=== PATIENT | female | born 1975 | race Caucasian/White ===

== ENCOUNTER → 2018-11-26 | Outpatient (CLI) | payer BC ==
--- NOTE | 2018-11-26 14:54 | MR ---
EXAMINATION TYPE: MR brain wo con DATE OF EXAM: 11/26/2018 COMPARISON: NONE HISTORY: elevated prolactin TECHNIQUE: Multiplanar, multisequence images of the brain and brainstem is performed without intravenous contras t. FINDINGS: Diffusion weighted images demonstrate no evidence of a recent infarct or other diffusion ab normality. There is no extra-axial fluid collection. Punctate foci of nonspecific white matter jaimes e are seen within the right frontal subcortical white matter such as on FLAIR axial fat-sat image 22 and 16. Left frontal focus is also seen on image 18. Additional centrum semiovale foci are seen on im age 25 and 26 bilaterally. The ventricular system and cisternal spaces are normal in size and appeara nce. The brain volume is age appropriate. There is a heterogenous pituitary gland mass measuring 1.3 x 1.5 x 1.7 cm that is central and right l ateral abutting the right cavernous sinus and right internal carotid artery. This does not appear to encase the right internal carotid artery. There is no current impression upon the optic chiasm. T2/FL AIR hyperintense internal foci suggest cystic degeneration. Major intracranial flow voids are maintai jamie, particularly the right carotid artery adjacent to this macroadenoma. The craniocervical junction appears within normal limits. The dural venous sinuses appear patent. The visualized sinuses display scant mucosal thickening in the right maxillary sinus. Remaining paranasa l sinuses and mastoid air cells are well aerated. Orbits are symmetric. IMPRESSION: 1. Heterogenous pituitary macroadenoma for which full evaluation with MRI pituitary mass protocol wit h contrast is recommended. 2. Few foci of nonspecific white matter change that most likely are sequela of chronic microangiopath y or migraines given their distribution.
== END | disposition home or self-care (01) ==
LOC: RADMRIMAIN 11:25
PROVIDERS: ATTEND Family Medicine
DX: D35.2 Benign neoplasm of pituitary gland (principal); R90.82 White matter disease, unspecified
CPT/HCPCS: 70551

== ENCOUNTER → 2019-01-28 | Outpatient (CLI) | payer BC ==
--- NOTE | 2019-01-29 19:45 | MR ---
EXAMINATION TYPE: MR pituitary wo/w con DATE OF EXAM: 01/28/2019 COMPARISON: MRI brain November 26, 2018. HISTORY: Pituitary tumor TECHNIQUE: Multiplanar, multisequence images of the brain and brainstem is performed without and with IV contras t, utilizing 7.5 mL intravenous Gadavist . Pituitary gland protocol. FINDINGS: Heterogeneous enhancing sellar mass is redemonstrated appears to be contiguous with the cli vus. Pituitary stalk is slightly deviated to the left of midline coronal image 12. Suprasellar cister n is maintained. Mass is believed to invade the sphenoid sinuses. Mass is just under to the right of midline on coronal images measuring 1.8 cm transversely by roughly 2.6 cm craniocaudal dimension by 3 .5 cm AP diameter. Normal pituitary gland is not seen. Optic chiasm is not effaced. Craniocervical ju nction is maintained. No gross hydrocephalus is seen. IMPRESSION: There is clival based mass invading sellar region differential includes neoplasm such as chordoma, advise correlation with CT. Advise neurosurgical referral.
== END | disposition home or self-care (01) ==
LOC: RADMRIMAIN 12:08
PROVIDERS: ATTEND Family Medicine
DX: D35.2 Benign neoplasm of pituitary gland (principal)
CPT/HCPCS: 70553; A9585

== ENCOUNTER → 2019-07-14 | Outpatient (CLI) | payer BC ==
[2019-07-14 11:52] LABS: T4, Free (Free Thyroxine) 1.1 ng/dL (0.80-1.80)
[2019-07-14 12:11] LABS: Prolactin 146.4 ng/mL (2.8-29.2)
[2019-07-18 13:08] LABS: Growth Hormone, Human 1.6 ng/mL (<10)
== END | disposition home or self-care (01) ==
LOC: LABWHC1 07:26
PROVIDERS: ATTEND Neurological Surgery
DX: D35.2 Benign neoplasm of pituitary gland (principal)
CPT/HCPCS: 36415; 82024; 82533; 83003; 84146; 84305; 84439; 84443

== ENCOUNTER → 2020-08-23 | Outpatient (CLI) | payer BC ==
--- NOTE | 2020-08-26 04:58 | CT ---
EXAMINATION TYPE: CT abdomen w con DATE OF EXAM: 08/23/2020 COMPARISON: NONE HISTORY: 45-year-old female Epigastric pain, nausea and vomiting x1 month. TECHNIQUE: Contiguous axial scanning of the abdomen following administration of 100 ml Isovue 300 IV contrast. Delayed images through the kidneys and coronal/sagittal reconstructions performed. CT DLP: 252.8 mGycm Automated exposure control for dose reduction was used. FINDINGS: Heart normal size without pericardial effusion. Lung bases clear without pleural effusion. Contrasted along with prominent retained ingested debris within the stomach. 9 mm hypervascular focus within the caudate lobe of the liver follows the blood pool on the delayed k idney images. This could represent a flash filling hemangioma. A couple additional flash filling sue ngiomas versus vascular shunting in the posterior right hepatic dome. Portal venous system is patent. No biliary ductal dilatation. Gallbladder, adrenal glands, kidneys, spleen with tiny anterior hilar splenule, and pancreas appear w ithin normal limits. No dilated small bowel, free fluid, free air. No mesenteric or retroperitoneal lymphadenopathy seen i n the upper mid abdomen. The pelvis not imaged. Moderate stool burden. No pericolonic inflammatory change. The appendix is not included in the field- of-view. Bones: Sclerotic focus measuring 1.3 cm posterior right iliac bone likely bone island. IMPRESSION: 1. A FEW HYPERVASCULAR LESIONS WITHIN THE LIVER MEASURING UP TO 9 MM FOLLOW THE BLOOD POOL ON DELAYED KIDNEY IMAGES SUGGESTING A BENIGN ETIOLOGY SUCH FLASH FILLING HEMANGIOMAS OR AREAS OF VASCULAR SH UNTING. 2. CONTRAST AND PROMINENT RETAINED INGESTED DEBRIS WITHIN THE STOMACH. 3. MODERATE STOOL BURDEN. 4. NO ACUTE INFLAMMATORY PROCESS IDENTIFIED IN THE UPPER OR MIDABDOMEN TO EXPLAIN THE PATIENT'S SYMPT OMS. THE PELVIS IS NOT IMAGED.
== END | disposition home or self-care (01) ==
LOC: RADCTMAIN 18:17
PROVIDERS: ATTEND Family Medicine
DX: K76.89 Other specified diseases of liver (principal); R19.5 Other fecal abnormalities; R93.5 Abnormal findings on diagnostic imaging of other abdominal regions, including retroperitoneum
CPT/HCPCS: 74160; Q9967

== ENCOUNTER 2021-03-30 05:21 | Inpatient (IN) | payer BC ==
[2021-03-30] MEDS ORDERED: SODIUM CHLORIDE 0.9% 1,000 ML IV STA (05:51)
--- NOTE | 2021-03-30 05:58 | ED ---
Abdominal Pain HPI <Edgar Victor - Last Filed: 03/30/21 09:44> - General Source: patient, RN notes reviewed, old records reviewed Mode of arrival: ambulatory Limitations: no limitations - History of Present Illness MD Complaint: abdominal pain, other (Right lower quadrant pain) -: days(s) Location: RLQ, suprapubic Radiation: RLQ, suprapubic Migration to: RLQ Severity: mild Severity scale (1-10): 3 Quality: aching Consistency: constant Improves With: nothing Worsens With: nothing Associated Symptoms: nausea Treatments Prior to Arrival: other (none) <Edgar Martinez - Last Filed: 03/30/21 21:22> - General Chief Complaint: Abdominal Pain Stated Complaint: abd pain Time Seen by Provider: 03/30/21 05:33 - History of Present Illness Initial Comments: This is a 45-year-old female to the ER for evaluation patient resents with nausea vomiting abdominal pain. Right lower quadrant abdominal pain epigastric abdominal pain. Patient also has anorexia and weakness. No fevers. Patient has not been feeling well for a few days now. (Edgar Martinez) - Related Data Home Medications Medication Instructions Recorded Confirmed Cabergoline 0.5 mg PO SUWE 03/30/21 03/30/21 Omeprazole 40 mg PO DAILY 03/30/21 03/30/21 Allergies Allergy/AdvReac Type Severity Reaction Status Date / Time No Known Allergies Allergy Verified 03/30/21 11:47 Review of Systems ROS Other: All systems not noted in ROS Statement are negative. <Edgar Victor - Last Filed: 03/30/21 09:44> ROS Other: All systems not noted in ROS Statement are negative. <Edgar Martinez - Last Filed: 03/30/21 21:22> ROS Statement: Those systems with pertinent positive or pertinent negative responses have been documented in the HPI. Past Medical History Past Medical History: No Reported History History of Any Multi-Drug Resistant Organisms: None Reported Past Surgical History: No Surgical Hx Reported Past Psychological History: No Psychological Hx Reported Smoking Status: Never smoker Past Alcohol Use History: Occasional Past Drug Use History: None Reported <Edgar Martinez - Last Filed: 03/30/21 21:22> General Exam Limitations: no limitations General appearance: alert, in no apparent distress Head exam: Present: atraumatic, normocephalic, normal inspection Eye exam: Present: normal appearance, PERRL, EOMI. Absent: scleral icterus, conjunctival injection, periorbital swelling ENT exam: Present: normal exam, mucous membranes moist Neck exam: Present: normal inspection. Absent: tenderness, meningismus, lymphadenopathy Respiratory exam: Present: normal lung sounds bilaterally. Absent: respiratory distress, wheezes, rales, rhonchi, stridor Cardiovascular Exam: Present: regular rate, normal rhythm, normal heart sounds. Absent: systolic murmur, diastolic murmur, rubs, gallop, clicks GI/Abdominal exam: Present: soft, normal bowel sounds. Absent: distended, tenderness, guarding, rebound, rigid Extremities exam: Present: normal inspection, full ROM, normal capillary refill. Absent: tenderness, pedal edema, joint swelling, calf tenderness Back exam: Present: normal inspection Neurological exam: Present: alert, oriented X3, CN II-XII intact Psychiatric exam: Present: normal affect, normal mood Skin exam: Present: warm, dry, intact, normal color. Absent: rash <Edgar Martinez - Last Filed: 03/30/21 21:22> Course <Edgar Martinez - Last Filed: 03/30/21 21:22> Vital Signs 03/30/21 03/30/21 03/30/21 05:33 08:00 10:00 Temperature 97.7 F 98.3 F Pulse Rate 94 62 67 Respiratory 16 18 18 Rate Blood Pressure 125/94 110/82 111/83 O2 Sat by Pulse 99 100 99 Oximetry - Reevaluation(s) Reevaluation #1: 03/30/21 05:58 Medical record is reviewed (Edgar Martinez) Reevaluation #2: And remained improved here in the ER Patient informed results questions answered (Edgar Martinez) Medical Decision Making - Lab Data Result diagrams: 03/30/21 06:02 03/30/21 06:02 <Edgar Victor - Last Filed: 03/30/21 09:44> - Lab Data Result diagrams: 03/30/21 06:02 03/30/21 06:02 - Radiology Data Radiology results: report reviewed (CT head and pelvis is negative, ultrasound does show gallstones), image reviewed <Edgar Martinez - Last Filed: 03/30/21 21:22> - Medical Decision Making 45 female the admitted for hepatitis, cholelithiasis, surgical GI consult (Edgar Martinez) - Lab Data Lab Results 03/30/21 03/30/21 03/30/21 Range/Units 06:02 06:02 06:02 WBC 6.5 (3.8-10.6) k/uL RBC 4.20 (3.80-5.40) m/uL Hgb 13.0 (11.4-16.0) gm/dL Hct 37.6 (34.0-46.0) % MCV 89.6 (80.0-100.0) fL MCH 31.0 (25.0-35.0) pg MCHC 34.6 (31.0-37.0) g/dL RDW 12.8 (11.5-15.5) % Plt Count 261 (150-450) k/uL MPV 6.9 Neutrophils % 66 % Lymphocytes % 23 % Monocytes % 7 % Eosinophils % 1 % Basophils % 1 % Neutrophils # 4.3 (1.3-7.7) k/uL Lymphocytes # 1.5 (1.0-4.8) k/uL Monocytes # 0.5 (0-1.0) k/uL Eosinophils # 0.1 (0-0.7) k/uL Basophils # 0.1 (0-0.2) k/uL PT (9.0-12.0) sec INR (<1.2) APTT (22.0-30.0) sec Sodium 140 (137-145) mmol/L Potassium 3.8 (3.5-5.1) mmol/L Chloride 103 (98-107) mmol/L Carbon Dioxide 28 (22-30) mmol/L Anion Gap 9 mmol/L BUN 7 (7-17) mg/dL Creatinine 0.61 (0.52-1.04) mg/dL Est GFR (CKD-EPI)AfAm >90 (>60 ml/min/1.73 sqM) Est GFR (CKD-EPI)NonAf >90 (>60 ml/min/1.73 sqM) Glucose 92 (74-99) mg/dL Plasma Lactic Acid Wes (0.7-2.0) mmol/L Calcium 9.8 (8.4-10.2) mg/dL Total Bilirubin 4.9 H (0.2-1.3) mg/dL Conjugated Bilirubin (0.0-0.3) mg/dL Unconjugated Bilirubin (0.0-1.1) mg/dL Delta Bilirubin (0.0-0.2) mg/dL GGT (12-43) U/L AST 394 H (14-36) U/L ALT 300 H (4-34) U/L Alkaline Phosphatase 128 H (38-126) U/L Total Protein 7.1 (6.3-8.2) g/dL Albumin 4.4 (3.5-5.0) g/dL Amylase 58 (30-110) U/L Lipase 223 (23-300) U/L Urine Color Yellow Urine Appearance Clear (Clear) Urine pH 6.5 (5.0-8.0) Ur Specific [place] 1.005 (1.001-1.035) Urine Protein Negative (Negative) Urine Glucose (UA) Negative (Negative) Urine Ketones Trace H (Negative) Urine Blood Negative (Negative) Urine Nitrite Negative (Negative) Urine Bilirubin 1+ H (Negative) Urine Urobilinogen <2.0 (<2.0) mg/dL Ur Leukocyte Esterase Negative (Negative) Acetaminophen ug/mL Hepatitis A IgM Ab (Non-Reactive) Hep Bs Antigen (Non-Reactive) Hep B Core IgM Ab (Non-Reactive) Hep C IgG Ab (Non-Reactive) 03/30/21 03/30/21 03/30/21 Range/Units 06:02 08:23 08:23 WBC (3.8-10.6) k/uL RBC (3.80-5.40) m/uL Hgb (11.4-16.0) gm/dL Hct (34.0-46.0) % MCV (80.0-100.0) fL MCH (25.0-35.0) pg MCHC (31.0-37.0) g/dL RDW (11.5-15.5) % Plt Count (150-450) k/uL MPV Neutrophils % % Lymphocytes % % Monocytes % % Eosinophils % % Basophils % % Neutrophils # (1.3-7.7) k/uL Lymphocytes # (1.0-4.8) k/uL Monocytes # (0-1.0) k/uL Eosinophils # (0-0.7) k/uL Basophils # (0-0.2) k/uL PT (9.0-12.0) sec INR (<1.2) APTT (22.0-30.0) sec Sodium (137-145) mmol/L Potassium (3.5-5.1) mmol/L Chloride (98-107) mmol/L Carbon Dioxide (22-30) mmol/L Anion Gap mmol/L BUN (7-17) mg/dL Creatinine (0.52-1.04) mg/dL Est GFR (CKD-EPI)AfAm (>60 ml/min/1.73 sqM) Est GFR (CKD-EPI)NonAf (>60 ml/min/1.73 sqM) Glucose (74-99) mg/dL Plasma Lactic Acid Wes 0.6 L (0.7-2.0) mmol/L Calcium (8.4-10.2) mg/dL Total Bilirubin 4.6 H (0.2-1.3) mg/dL Conjugated Bilirubin 2.0 H (0.0-0.3) mg/dL Unconjugated Bilirubin 1.9 H (0.0-1.1) mg/dL Delta Bilirubin 0.7 H (0.0-0.2) mg/dL GGT 99 H (12-43) U/L AST (14-36) U/L ALT (4-34) U/L Alkaline Phosphatase (38-126) U/L Total Protein (6.3-8.2) g/dL Albumin (3.5-5.0) g/dL Amylase (30-110) U/L Lipase (23-300) U/L Urine Color Urine Appearance (Clear) Urine pH (5.0-8.0) Ur Specific [place] (1.001-1.035) Urine Protein (Negative) Urine Glucose (UA) (Negative) Urine Ketones (Negative) Urine Blood (Negative) Urine Nitrite (Negative) Urine Bilirubin (Negative) Urine Urobilinogen (<2.0) mg/dL Ur Leukocyte Esterase (Negative) Acetaminophen <10.0 ug/mL Hepatitis A IgM Ab Non-Reactive (Non-Reactive) Hep Bs Antigen Non-Reactive (Non-Reactive) Hep B Core IgM Ab Non-Reactive (Non-Reactive) Hep C IgG Ab Non-Reactive (Non-Reactive) 03/30/21 Range/Units 08:23 WBC (3.8-10.6) k/uL RBC (3.80-5.40) m/uL Hgb (11.4-16.0) gm/dL Hct (34.0-46.0) % MCV (80.0-100.0) fL MCH (25.0-35.0) pg MCHC (31.0-37.0) g/dL RDW (11.5-15.5) % Plt Count (150-450) k/uL MPV Neutrophils % % Lymphocytes % % Monocytes % % Eosinophils % % Basophils % % Neutrophils # (1.3-7.7) k/uL Lymphocytes # (1.0-4.8) k/uL Monocytes # (0-1.0) k/uL Eosinophils # (0-0.7) k/uL Basophils # (0-0.2) k/uL PT 10.8 (9.0-12.0) sec INR 1.0 (<1.2) APTT 22.4 (22.0-30.0) sec Sodium (137-145) mmol/L Potassium (3.5-5.1) mmol/L Chloride (98-107) mmol/L Carbon Dioxide (22-30) mmol/L Anion Gap mmol/L BUN (7-17) mg/dL Creatinine (0.52-1.04) mg/dL Est GFR (CKD-EPI)AfAm (>60 ml/min/1.73 sqM) Est GFR (CKD-EPI)NonAf (>60 ml/min/1.73 sqM) Glucose (74-99) mg/dL Plasma Lactic Acid Wes (0.7-2.0) mmol/L Calcium (8.4-10.2) mg/dL Total Bilirubin (0.2-1.3) mg/dL Conjugated Bilirubin (0.0-0.3) mg/dL Unconjugated Bilirubin (0.0-1.1) mg/dL Delta Bilirubin (0.0-0.2) mg/dL GGT (12-43) U/L AST (14-36) U/L ALT (4-34) U/L Alkaline Phosphatase (38-126) U/L Total Protein (6.3-8.2) g/dL Albumin (3.5-5.0) g/dL Amylase (30-110) U/L Lipase (23-300) U/L Urine Color Urine Appearance (Clear) Urine pH (5.0-8.0) Ur Specific [place] (1.001-1.035) Urine Protein (Negative) Urine Glucose (UA) (Negative) Urine Ketones (Negative) Urine Blood (Negative) Urine Nitrite (Negative) Urine Bilirubin (Negative) Urine Urobilinogen (<2.0) mg/dL Ur Leukocyte Esterase (Negative) Acetaminophen ug/mL Hepatitis A IgM Ab (Non-Reactive) Hep Bs Antigen (Non-Reactive) Hep B Core IgM Ab (Non-Reactive) Hep C IgG Ab (Non-Reactive) Disposition Time of Disposition: 09:45 <Edgar Victor - Last Filed: 03/30/21 09:44> Is patient prescribed a controlled substance at d/c from ED?: No <Edgar Martinez - Last Filed: 03/30/21 21:22> Clinical Impression: Abdominal pain, Cholelithiasis, Hepatitis Disposition: ADMITTED IP TO THIS [facility] Condition: Good
[2021-03-30 06:22] LABS: Basophils # (A) 0.1 k/uL (0-0.2); Basophils % (A) 1 %; Eosinophils # (A) 0.1 k/uL (0-0.7); Eosinophils % (A) 1 %; HCT 37.6 % (34.0-46.0); Lymphocytes # (A) 1.5 k/uL (1.0-4.8); Lymphocytes % (A) 23 %; MCHC 34.6 g/dL (31.0-37.0); MCV 89.6 fL (80.0-100.0); Mean Platelet Volume 6.9; Monocytes # (A) 0.5 k/uL (0-1.0); Monocytes % (A) 7 %; Neutrophils # (A) 4.3 k/uL (1.3-7.7); Neutrophils % (A) 66 %; Platelet Count 261 k/uL (150-450); RDW 12.8 % (11.5-15.5); WBC 6.5 k/uL (3.8-10.6)
[2021-03-30 06:32] LABS: ALT 300 U/L (4-34); AST 394 U/L (14-36); African American GFR (CKD) >90 (>60 ml/min/1.73 sqM); Albumin 4.4 g/dL (3.5-5.0); Alkaline Phosphatase 128 U/L (38-126); Amylase 58 U/L (30-110); Anion Gap 9 mmol/L; Blood Urea Nitrogen 7 mg/dL (7-17); Calcium 9.8 mg/dL (8.4-10.2); Carbon Dioxide 28 mmol/L (22-30); Chloride 103 mmol/L (98-107); Glucose 92 mg/dL (74-99); Lipase 223 U/L (23-300); Non-African American GFR(CKD) >90 (>60 ml/min/1.73 sqM); Potassium 3.8 mmol/L (3.5-5.1); Sodium 140 mmol/L (137-145); Total Bilirubin 4.9 mg/dL (0.2-1.3); Total Protein 7.1 g/dL (6.3-8.2)
[2021-03-30 06:33] LABS: Appearance,Urine Clear (Clear); Bilirubin,Urine 1+ (Negative); Blood,Urine Negative (Negative); Color,Urine Yellow; Glucose,Urine (UA) Negative (Negative); Ketones,Urine Trace (Negative); Leukocyte Esterase,Urine Negative (Negative); Nitrite,Urine Negative (Negative); PH, Urine 6.5 (5.0-8.0); Protein,Urine Negative (Negative); Specific Gravity,Urine 1.005 (1.001-1.035); Urobilinogen,Urine <2.0 mg/dL (<2.0)
--- NOTE | 2021-03-30 07:10 | CT ---
EXAM: CT Abdomen and Pelvis With Intravenous Contrast CLINICAL HISTORY: ITS.REASON CT Reason: abdominal pain TECHNIQUE: Axial computed tomography images of the abdomen and pelvis with intravenous contrast. CTDI is 11.27 mGy and DLP is 472.8 mGy-cm. This CT exam was performed using one or more of the following dose reduction techniques: automated exposure control, adjustment of the mA and/or kV according to patient size, and/or use of iterative reconstruction technique. COMPARISON: 08/23/2020 FINDINGS: Lung bases: Unremarkable. No mass. No consolidation. ABDOMEN: Liver: 9 mm hemangioma in the left hepatic lobe. 2.0 cm inferior left hepatic lobe hypervascular lesion, unchanged from prior study. Gallbladder and bile ducts: Unremarkable. No calcified stones. No ductal dilation. Pancreas: Unremarkable. No mass. No ductal dilation. Spleen: Unremarkable. No splenomegaly. Adrenals: Unremarkable. No mass. Kidneys and ureters: Unremarkable. No solid mass. No hydronephrosis. Stomach and bowel: Unremarkable. No obstruction. No mucosal thickening. PELVIS: Appendix: No findings to suggest acute appendicitis. Bladder: Unremarkable. No mass. Reproductive: Unremarkable as visualized. ABDOMEN and PELVIS: Intraperitoneal space: Unremarkable. No free air. No significant fluid collection. Bones/joints: No acute fracture. No dislocation. Soft tissues: Unremarkable. Vasculature: Unremarkable. No abdominal aortic aneurysm. Lymph nodes: Unremarkable. No enlarged lymph nodes. IMPRESSION: No acute intra-abdominal process.
--- NOTE | 2021-03-30 08:39 | US ---
EXAMINATION TYPE: US gallbladder DATE OF EXAM: 03/30/2021 COMPARISON: NONE CLINICAL HISTORY: pain. Pain EXAM MEASUREMENTS: Liver Length: 14.9 cm Gallbladder Wall: 0.3-0.4 cm CBD: 0,3 cm Right Kidney: 9.8 x 3.8 x 4.8 cm Pancreas: wnl Liver: wnl Gallbladder: Multiple gallstones visualized. Evidence for sonographic Maloney's sign: No CBD: wnl Right Kidney: wnl IMPRESSION: Cholelithiasis, correlate for possible cholecystitis, HIDA scan may be of benefit
[2021-03-30 08:49] LABS: Partial Thromboplastin Time 22.4 sec (22.0-30.0); Prothrombin Time 10.8 sec (9.0-12.0)
[2021-03-30 08:53] LABS: Acetaminophen <10.0 ug/mL; Bilirubin, Delta 0.7 mg/dL (0.0-0.2); Bilirubin,Unconjugated 1.9 mg/dL (0.0-1.1); GGT 99 U/L (12-43); Total Bilirubin 4.6 mg/dL (0.2-1.3)
[2021-03-30] MEDS ORDERED: NON FORMULARY DRUG (Cabergoline [Cabergoline] 0.5 MG Tablet) PO SCH (09:00)
[2021-03-30] MEDS ORDERED: SODIUM CHLORIDE 0.9% 1,000 ML IV ONE (09:45)
[2021-03-30] MEDS ORDERED: ONDANSETRON 4 MG/2 ML VIAL IVP PRN (12:11)
[2021-03-30] MEDS ORDERED: HYDROcodone/APAP 7.5-325MG 1 EACH TAB PO PRN (12:11)
[2021-03-30] MEDS ORDERED: MORPHINE SULFATE 4 MG/ML SYRINGE IVP PRN (12:11)
[2021-03-30] MEDS: PANTOPRAZOLE 40 MG/10 ML VIAL IVP SCH (12:23)
[2021-03-30 12:55] LABS: Hepatitis A Antibody IgM Non-Reactive (Non-Reactive); Hepatitis B Core IgM Non-Reactive (Non-Reactive); Hepatitis B Surface Antigen Non-Reactive (Non-Reactive); Hepatitis C IgG Antibody Non-Reactive (Non-Reactive)
--- NOTE | 2021-03-30 13:35 | P.HPIM ---
History of Present Illness 40-year-old female with known history of gallstones came in with complaints of right upper quadrant abdominal pain started after fatty food patient has on and off for pain sharp in nature patient does not have any fever chills doesn't have any leukocytosis. Patient is found to have gallstones on the ultrasound. Patient also has elevated liver enzymes including elevated alkaline phosphatase,, glutamyl transpeptidase, both direct and indirect of bilirubin. Ultrasound did not show any choledocholithiasis or dilated common bile duct. Gastroenterology and general surgery were consulted. Patient had associated nausea REVIEW OF SYSTEMS: CONSTITUTIONAL: No fever, no malaise, no fatigue. HEENT: No recent visual problems or hearing problems. Denied any sore throat. CARDIOVASCULAR: No chest pain, orthopnea, PND, no palpitations, no syncope. PULMONARY: No shortness of breath, no cough, no hemoptysis. GASTROINTESTINAL: As mentioned above NEUROLOGICAL: No headaches, no weakness, no numbness. HEMATOLOGICAL: Denies any bleeding or petechiae. GENITOURINARY: Denies any burning micturition, frequency, or urgency. MUSCULOSKELETAL/RHEUMATOLOGICAL: Denies any joint pain, swelling, or any muscle pain. ENDOCRINE: Denies any polyuria or polydipsia. The rest of the 14-point review of systems is negative. PHYSICAL EXAMINATION: GENERAL: The patient is alert and oriented x3, not in any acute distress. Well developed, well nourished. HEENT: Pupils are round and equally reacting to light. EOMI. No scleral icterus. No conjunctival pallor. Normocephalic, atraumatic. No pharyngeal erythema. No thyromegaly. CARDIOVASCULAR: S1 and S2 present. No murmurs, rubs, or gallops. PULMONARY: Chest is clear to auscultation, no wheezing or crackles. ABDOMEN: Soft, nontender, nondistended, normoactive bowel sounds. No palpable organomegaly. Negative Maloney's sign MUSCULOSKELETAL: No joint swelling or deformity. EXTREMITIES: No cyanosis, clubbing, or pedal edema. NEUROLOGICAL: Gross neurological examination did not reveal any focal deficits. SKIN: No rashes. Assessment and plan -Symptomatically cholelithiasis: IV fluids pain management, patient will be started on a liquid diet nothing by mouth after midnight surgical evaluation -Elevated liver enzymes with out any clear evidence of choledocholithiasis or dilated common bile duct on the ultrasound. Considering elevated liver enzymes we'll repeat them and gastro-oncology will be consulted -Direct and indirect hyperbilirubinemia secondary to gallstones -History of prolactinoma: Patient is cabergolin which will be continued DVT prophylaxis: Early ambulation, GI prophylaxis Protonix Past Medical History Past Medical History: GERD/Reflux Additional Past Medical History / Comment(s): BENIGN PITUITARY GLAND TUMOR History of Any Multi-Drug Resistant Organisms: None Reported Past Surgical History: No Surgical Hx Reported Past Anesthesia/Blood Transfusion Reactions: No Reported Reaction Past Psychological History: No Psychological Hx Reported Smoking Status: Never smoker Past Alcohol Use History: Occasional Past Drug Use History: None Reported - Past Family History Mother Family Medical History: No Reported History Medications and Allergies Home Medications Medication Instructions Recorded Confirmed Type Cabergoline 0.5 mg PO SUWE 03/30/21 03/30/21 History Omeprazole 40 mg PO DAILY 03/30/21 03/30/21 History Allergies Allergy/AdvReac Type Severity Reaction Status Date / Time No Known Allergies Allergy Verified 03/30/21 11:47 Physical Exam Vitals: Vital Signs Temp Pulse Pulse Resp BP BP Pulse Ox 03/30/21 11:00 97.9 F 66 18 113/74 99 03/30/21 10:00 98.3 F 67 18 111/83 99 03/30/21 08:00 62 18 110/82 100 03/30/21 05:33 97.7 F 94 16 125/94 99 Intake and Output 03/29/21 03/30/21 03/30/21 22:59 06:59 14:59 Other: Weight 54.431 kg 50.349 kg Results CBC & Chem 7: 03/30/21 06:02 03/30/21 06:02 Labs: Abnormal Lab Results - Last 24 Hours (Table) 03/30/21 03/30/21 03/30/21 Range/Units 06:02 06:02 06:02 Plasma Lactic Acid Wes 0.6 L (0.7-2.0) mmol/L Total Bilirubin 4.9 H (0.2-1.3) mg/dL Conjugated Bilirubin (0.0-0.3) mg/dL Unconjugated Bilirubin (0.0-1.1) mg/dL Delta Bilirubin (0.0-0.2) mg/dL GGT (12-43) U/L AST 394 H (14-36) U/L ALT 300 H (4-34) U/L Alkaline Phosphatase 128 H (38-126) U/L Urine Ketones Trace H (Negative) Urine Bilirubin 1+ H (Negative) 03/30/21 Range/Units 08:23 Plasma Lactic Acid Wes (0.7-2.0) mmol/L Total Bilirubin 4.6 H (0.2-1.3) mg/dL Conjugated Bilirubin 2.0 H (0.0-0.3) mg/dL Unconjugated Bilirubin 1.9 H (0.0-1.1) mg/dL Delta Bilirubin 0.7 H (0.0-0.2) mg/dL GGT 99 H (12-43) U/L AST (14-36) U/L ALT (4-34) U/L Alkaline Phosphatase (38-126) U/L Urine Ketones (Negative) Urine Bilirubin (Negative) Thrombosis Risk Factor Assmnt - Choose All That Apply Any of the Below Risk Factors Present?: Yes Each Factor Represents 1 point: Age 41-60 years Thrombosis Risk Factor Assessment Total Risk Factor Score: 1 Thrombosis Risk Factor Assessment Level: Low Risk
[2021-03-31 06:07] LABS: HCT 32.3 % (34.0-46.0); HGB 11.2 gm/dL (11.4-16.0); MCH 31.4 pg (25.0-35.0); MCHC 34.6 g/dL (31.0-37.0); MCV 90.7 fL (80.0-100.0); Mean Platelet Volume 6.9; Platelet Count 213 k/uL (150-450); RBC 3.56 m/uL (3.80-5.40); RDW 12.8 % (11.5-15.5); WBC 4.9 k/uL (3.8-10.6)
[2021-03-31 06:25] LABS: ALT 224 U/L (4-34); AST 160 U/L (14-36); African American GFR (CKD) >90 (>60 ml/min/1.73 sqM); Albumin 3.2 g/dL (3.5-5.0); Alkaline Phosphatase 128 U/L (38-126); Anion Gap 3 mmol/L; Blood Urea Nitrogen 9 mg/dL (7-17); Calcium 8.9 mg/dL (8.4-10.2); Carbon Dioxide 29 mmol/L (22-30); Chloride 108 mmol/L (98-107); Glucose 81 mg/dL (74-99); Non-African American GFR(CKD) >90 (>60 ml/min/1.73 sqM); Potassium 4.2 mmol/L (3.5-5.1); Sodium 140 mmol/L (137-145); Total Protein 5.6 g/dL (6.3-8.2)
[2021-03-31] MEDS: PANTOPRAZOLE 40 MG/10 ML VIAL IVP SCH (07:44)
[2021-03-31] MEDS: PIPERACILLIN-TAZOBACTAM 3.375 GM in SODIUM CHLORIDE 0.9% 100 ML IVPB SCH ×2 (10:01→18:29)
--- NOTE | 2021-03-31 17:17 | MR ---
MRCP HISTORY: Elevated liver function tests, abdominal pain Multiplanar multisequence imaging obtained through the abdomen with three-dimensional reconstructions performed through the biliary system. Correlation to CT scan and ultrasound dated 03/30/2021 No signal drop on out of phase imaging within the liver to suggest fatty liver. The previously descri bed hemangioma shows hypointense signal on T1, hyperintense signal on T2 within the left lobe of the liver and measures approximately 12 mm as noted on CT, similar lesion is present in the posterior rig ht lobe. No definite corresponding signal changes within the left lobe at the level of the inferior m argin to account for the enhancement seen on CT. Multiple small hypointense foci seen on T2-weighted sequences within the gallbladder consistent with cholelithiasis and patient's findings on ultrasound, no biliary obstruction, no evident choledocholit hiasis. No evident gallbladder wall thickening to suggest cholecystitis. Lung bases show no effusion, there is no ascites. Aorta shows normal caliber. Adrenal glands, kidneys , pancreas and spleen are within normal limits. No evident bowel obstruction. Bone marrow signal is m aintained. IMPRESSION: Cholelithiasis. Possible hemangiomas within the liver. Noncontrast exam May limit evaluat ion. No evident choledocholithiasis.
--- NOTE | 2021-03-31 17:27 | P.GSCN ---
History of Present Illness Consult date: 03/31/21 History of present illness: 45-year-old female presented to the emergency department with recent abdominal pain. Patient states that she was having right upper quadrant pain that lasted approximately 3 days that was crampy in nature and created a feeling of bloating and gas. She states that all of a sudden on Wednesday, the pain resolved. However, patient states at that time she noticed extremely dark urine and presented to the emergency department. On workup, patient was noted to have significantly elevated bilirubin. Ultrasound also revealed significant cholel ithiasis. Based on patient's symptomatology, concern is for choledocholithiasis or passage of stone through the common bile duct. Patient denies having any previous surgical history. She states that she went through a previous episode of similar pain a few months ago. Denies any fevers, chills, chest pain or shortness of breath. Review of Systems All systems: negative Past Medical History Past Medical History: No Reported History Additional Past Medical History / Comment(s): BENIGN PITUITARY GLAND TUMOR History of Any Multi-Drug Resistant Organisms: None Reported Past Surgical History: No Surgical Hx Reported Past Anesthesia/Blood Transfusion Reactions: No Reported Reaction Past Psychological History: No Psychological Hx Reported Smoking Status: Never smoker Past Alcohol Use History: Occasional Past Drug Use History: None Reported - Past Family History Mother Family Medical History: No Reported History Medications and Allergies Home Medications Medication Instructions Recorded Confirmed Type Cabergoline 0.5 mg PO SUWE 03/30/21 03/30/21 History Omeprazole 40 mg PO DAILY 03/30/21 03/30/21 History Allergies Allergy/AdvReac Type Severity Reaction Status Date / Time No Known Allergies Allergy Verified 03/30/21 11:47 Surgical - Exam Osteopathic Statement: *. No significant issues noted on an osteopathic structural exam other than those noted in the History and Physical/Consult. Vital Signs Temp Pulse Resp BP Pulse Ox 97.7 F 94 16 125/94 99 03/30/21 05:33 03/30/21 05:33 03/30/21 05:33 03/30/21 05:33 03/30/21 05:33 - General no distress - Eyes PERRL - ENT no hearing loss - Neck trachea midline - Respiratory normal respiratory effort - Abdomen Soft, nontender, nondistended, no rebound, no guarding - Psychiatric oriented to time, oriented to person, oriented to place Results - Labs 03/31/21 05:24 03/31/21 05:24 Abnormal Lab Results - Last 24 Hours (Table) 03/31/21 03/31/21 Range/Units 05:24 05:24 RBC 3.56 L (3.80-5.40) m/uL Hgb 11.2 L (11.4-16.0) gm/dL Hct 32.3 L (34.0-46.0) % Chloride 108 H (98-107) mmol/L Total Bilirubin 2.0 H (0.2-1.3) mg/dL AST 160 H (14-36) U/L ALT 224 H (4-34) U/L Alkaline Phosphatase 128 H (38-126) U/L Total Protein 5.6 L (6.3-8.2) g/dL Albumin 3.2 L (3.5-5.0) g/dL Diabetes panel 03/31/21 Range/Units 05:24 Sodium 140 (137-145) mmol/L Potassium 4.2 (3.5-5.1) mmol/L Chloride 108 H (98-107) mmol/L Carbon Dioxide 29 (22-30) mmol/L BUN 9 (7-17) mg/dL Creatinine 0.60 (0.52-1.04) mg/dL Glucose 81 (74-99) mg/dL Calcium 8.9 (8.4-10.2) mg/dL AST 160 H (14-36) U/L ALT 224 H (4-34) U/L Alkaline Phosphatase 128 H (38-126) U/L Total Protein 5.6 L (6.3-8.2) g/dL Albumin 3.2 L (3.5-5.0) g/dL Calcium panel 03/31/21 Range/Units 05:24 Calcium 8.9 (8.4-10.2) mg/dL Albumin 3.2 L (3.5-5.0) g/dL Pituitary panel 03/31/21 Range/Units 05:24 Sodium 140 (137-145) mmol/L Potassium 4.2 (3.5-5.1) mmol/L Chloride 108 H (98-107) mmol/L Carbon Dioxide 29 (22-30) mmol/L BUN 9 (7-17) mg/dL Creatinine 0.60 (0.52-1.04) mg/dL Glucose 81 (74-99) mg/dL Calcium 8.9 (8.4-10.2) mg/dL Adrenal panel 03/31/21 Range/Units 05:24 Sodium 140 (137-145) mmol/L Potassium 4.2 (3.5-5.1) mmol/L Chloride 108 H (98-107) mmol/L Carbon Dioxide 29 (22-30) mmol/L BUN 9 (7-17) mg/dL Creatinine 0.60 (0.52-1.04) mg/dL Glucose 81 (74-99) mg/dL Calcium 8.9 (8.4-10.2) mg/dL Total Bilirubin 2.0 H (0.2-1.3) mg/dL AST 160 H (14-36) U/L ALT 224 H (4-34) U/L Alkaline Phosphatase 128 H (38-126) U/L Total Protein 5.6 L (6.3-8.2) g/dL Albumin 3.2 L (3.5-5.0) g/dL Assessment and Plan Plan: 45-year-old female with cholelithiasis and initially, question of choledo cholithiasis. She is noted to have drop in bilirubin from 4.9 to 2.0. She was evaluated by gastroenterology and did have MRCP performed. There is no evidence of choledocholithiasis and MRCP. Based on symptomatology, it is likely that the patient passed a stone. Based on these findings, recommendation is for cholecystectomy. This was explained to the patient. She is agreeable with this plan. We will make the patient nothing by mouth after midnight and plan for laparoscopic cholecystectomy tomorrow.
--- NOTE | 2021-03-31 17:49 | P.PN ---
Subjective Progress Note Date: 03/31/21 This is a pleasant 45-year-old female admitted with symptomatic cholelithiasis, elevated LFTs, significant hyperbilirubinemia. T bili 4.9 on admission, dropped to 2 today, suspect possibly passed a stone. Reports similar episode in the fall. Tender right upper quadrant. Maintained on IV fluid hydration, no nausea or vomiting. Evaluated by GI with MRCP recommended. Surgery evaluation pending. T Bili decreased to 2 ,LFTs improving. Afebrile, normal WBC. Denies any chest pain, palpitations or shortness of breath. Objective - Vital Signs Vital signs: Vital Signs Temp 97.5 F L 03/31/21 08:07 Pulse 66 03/31/21 08:07 Resp 16 03/31/21 08:07 BP 108/69 03/31/21 08:07 Pulse Ox 98 03/31/21 08:07 Intake & Output 03/30/21 03/31/21 03/31/21 18:59 06:59 18:59 Intake Total 360 Output Total 1250 Balance -890 Weight 50.349 kg Intake: Oral 360 Output: Urine 1250 Other: Voiding Method Toilet Toilet # Voids 1 - Exam PHYSICAL EXAMINATION: GENERAL: alert and oriented x3, no acute distress. HEENT: Pupils are round and equally reacting to light. EOMI. No scleral icterus. No conjunctival pallor. Normocephalic, atraumatic. No pharyngeal erythema. No thyromegaly. CARDIOVASCULAR: S1 and S2 present. No murmurs, rubs, or gallops. PULMONARY: Chest is clear to auscultation, no wheezing or crackles. ABDOMEN: Soft, nondistended, right upper quadrant TTP, no guarding, normoactive bowel sounds. No palpable organomegaly. EXTREMITIES: No cyanosis, clubbing, or pedal edema. NEUROLOGICAL: Gross neurological examination did not reveal any focal deficits. SKIN: No rashes. - Labs CBC & Chem 7: 03/31/21 05:24 03/31/21 05:24 Labs: Abnormal Lab Results - Last 24 Hours (Table) 03/31/21 03/31/21 Range/Units 05:24 05:24 RBC 3.56 L (3.80-5.40) m/uL Hgb 11.2 L (11.4-16.0) gm/dL Hct 32.3 L (34.0-46.0) % Chloride 108 H (98-107) mmol/L Total Bilirubin 2.0 H (0.2-1.3) mg/dL AST 160 H (14-36) U/L ALT 224 H (4-34) U/L Alkaline Phosphatase 128 H (38-126) U/L Total Protein 5.6 L (6.3-8.2) g/dL Albumin 3.2 L (3.5-5.0) g/dL Assessment and Plan Assessment: Symptomatic cholelithiasis, ultrasound reported gallstones. CT reported no calcified stones, no ductal dilation of the gallbladder. Elevated T bili, LFTs. CT reported 9 mm hemangioma in the left hepatic lobe, 2 cm inferior left hepatic lobe, hypervascular lesion unchanged from prior study Hyperbilirubinemia Plan: Continue on current medication regime ,monitoring and symptomatic treatment. Maintain IV fluid hydration. MRCP pending per GI. Surgery consulted with recommendations pending. Aggressive pulmonary toilet and with incentive spirometer ordered. GI prophylaxis with Protonix. The impression and plan of care has been dictated as directed. : I performed a history and examination of this patient, discussed the same with the dictator. I agree with the dictator's note ,documented as a scribe. Any additional findings or plans will be noted.
--- NOTE | 2021-03-31 18:20 | CONS ---
CONSULTATION DATE OF SERVICE: 03/31/2021 REQUESTING PHYSICIAN: Dr. James Shirley. REASON FOR CONSULTATION: Abdominal pain, elevated LFTs and jaundice. HISTORY OF PRESENT ILLNESS: The patient is a 45-year-old pleasant white female admitted to the hospital with acute onset of severe epigastric and right upper quadrant abdominal pain that started on Wednesday evening. The pain continued to progressively get worse and had some dark colored urine and hence came into the emergency room yesterday and subsequently admitted to the hospital for further evaluation. She was noted to have elevated serum transaminases with ALT and AST in the range of 300 and bilirubin was up to 4.9. This morning, bilirubin is down to 2, AST and ALT have improved to 160 and 224. Her abdominal pain has completely resolved. She had a similar episode about a year ago that lasted for a day and resolved. She denies any fever, chills, night sweats. No nausea, vomiting. She did have ultrasound of the gallbladder done that did show evidence of gallstones but no evidence of biliary ductal dilation. PAST MEDICAL HISTORY: Gastroesophageal reflux disease. MEDICATIONS: At home, omeprazole 20 mg daily and cabergoline. ALLERGIES: None. SOCIAL HISTORY: No smoking. No alcohol use. FAMILY HISTORY: Unremarkable. REVIEW OF SYSTEMS: CARDIOPULMONARY: No chest pain or shortness of breath. : No dysuria or hematuria. MUSCULOSKELETAL: Unremarkable. SKIN: Unremarkable. ENDOCRINE: Unremarkable PSYCHIATRIC: Unremarkable. NEUROLOGY: Unremarkable. ENT/VISION: Unremarkable. CONSTITUTIONAL: No recent weight loss. No fever, chills, night sweats. HEMATOLOGY: Unremarkable. GI: As mentioned above. PAST SURGICAL HISTORY: Benign pituitary gland removal. PHYSICAL EXAMINATION: GENERAL: She appears comfortable. No apparent distress. VITAL SIGNS: Stable. Blood pressure 108/69, pulse is 66, temperature 97.5. HEENT: Examination unremarkable. Conjunctivae are pink. Sclerae slightly icteric. Oral cavity no lesions. Neck no JVD or lymph node enlargement. CHEST: Clear to auscultation. HEART: Regular rate and rhythm. ABDOMEN: Soft, it was nontender, nondistended, bowel sounds are positive, no organomegaly. EXTREMITIES: No pedal edema. NEURO: She is alert and oriented x3. No focal deficits. LABS: Labs at the time of admission to the hospital in 03/30, WBC 6.5, hemoglobin 13, platelets normal. AST 394, ALT 300, alkaline phosphatase 128, T bilirubin 4.9. Today T bilirubin is down to 2, AST down to 224, ALT is 160, alkaline phosphatase is 128. Hepatitis serologies for A, B and C are negative. IMPRESSIONS: 1. This lady presents to the hospital with acute onset of severe epigastric pain associated with some nausea but no emesis. Noted to have elevated serum transaminases and bilirubin up to 4.9. Ultrasound did show evidence of gallstones but no biliary ductal dilation. Her serum transaminases have improved today and so did the T bilirubin is down to 2. Her symptoms are significantly improved and she is pain free currently. At this point, more than likely she must have passed the CBD stone spontaneously. 2. Symptomatic gallstones. RECOMMENDATIONS: 1. Proceed with MRCP to rule out CBD stone. 2. If her serum transaminases are improving and bilirubin is improving, she can proceed with planned laparoscopic cholecystectomy tomorrow by Dr. Chery. 3. We will follow with you closely. MMODL / IJN: [id number] /
[2021-04-01] MEDS: PIPERACILLIN-TAZOBACTAM 3.375 GM in SODIUM CHLORIDE 0.9% 100 ML IVPB SCH ×4 (02:11→18:34)
[2021-04-01 06:30] LABS: Basophils # (A) 0.1 k/uL (0-0.2); Basophils % (A) 1 %; Eosinophils # (A) 0.2 k/uL (0-0.7); Eosinophils % (A) 4 %; HCT 32.6 % (34.0-46.0); HGB 11.3 gm/dL (11.4-16.0); Lymphocytes # (A) 2.3 k/uL (1.0-4.8); Lymphocytes % (A) 45 %; MCH 31.3 pg (25.0-35.0); MCHC 34.7 g/dL (31.0-37.0); MCV 90.2 fL (80.0-100.0); Mean Platelet Volume 7.3; Monocytes # (A) 0.4 k/uL (0-1.0); Monocytes % (A) 7 %; Neutrophils % (A) 39 %; Platelet Count 224 k/uL (150-450); RBC 3.62 m/uL (3.80-5.40); RDW 12.9 % (11.5-15.5); WBC 5.1 k/uL (3.8-10.6)
[2021-04-01 06:57] LABS: ALT 154 U/L (4-34); AST 65 U/L (14-36); African American GFR (CKD) >90 (>60 ml/min/1.73 sqM); Albumin 3.2 g/dL (3.5-5.0); Alkaline Phosphatase 116 U/L (38-126); Anion Gap 6 mmol/L; Blood Urea Nitrogen 9 mg/dL (7-17); Calcium 8.7 mg/dL (8.4-10.2); Carbon Dioxide 27 mmol/L (22-30); Chloride 107 mmol/L (98-107); Glucose 74 mg/dL (74-99); Non-African American GFR(CKD) >90 (>60 ml/min/1.73 sqM); Potassium 3.6 mmol/L (3.5-5.1); Sodium 140 mmol/L (137-145); Total Bilirubin 1.2 mg/dL (0.2-1.3); Total Protein 5.7 g/dL (6.3-8.2)
--- NOTE | 2021-04-01 08:33 | P.PN ---
Subjective Progress Note Date: 04/01/21 Principal diagnosis: Abdominal pain A 45-year-old white female who presented to the emergency department with complaints of abdominal pain mostly in the right upper quadrant with some associated nausea. The patient has not had any pain since early Wednesday morning. Gallbladder ultrasound showed cholelithiasis, surgery is on consult. On presentation the patient had elevated LFTs with a max bilirubin of 4.9 which has continued to trend down and today is 1.2. Patient underwent an MRCP yesterday showing no evidence of choledochal lithiasis. She is seen and examined states s he has no abdominal pain, nausea, or vomiting. Plan is for cholecystitis today with general surgery. Objective - Vital Signs Vital signs: Vital Signs Temp 97.9 F 04/01/21 02:00 Pulse 61 04/01/21 02:00 Resp 16 04/01/21 02:00 BP 91/58 04/01/21 02:00 Pulse Ox 96 04/01/21 02:00 Intake & Output 03/31/21 04/01/21 04/01/21 18:59 06:59 18:59 Intake Total 780 Output Total 800 2700 Balance -800 -1920 Intake: Oral 780 Output: Urine 800 2700 Other: Voiding Method Toilet Toilet - Exam General appearance: The patient is alert, oriented, appears in no acute distress. HET: Head is normocephalic and atraumatic. Conjunctiva pink. Sclera anicteric. Neck: Supple without lymphadenopathy. Abdomen: Soft, nontender, nondistended with bowel sounds. No guarding or rigidity. Extremities: Normal skin color and turgor. No pedal edema Skin: No rashes, no jaundice Neurological: No focal deficits. Alert and oriented 3. - Labs CBC & Chem 7: 04/01/21 06:11 04/01/21 06:11 Labs: Abnormal Lab Results - Last 24 Hours (Table) 04/01/21 04/01/21 Range/Units 06:11 06:11 RBC 3.62 L (3.80-5.40) m/uL Hgb 11.3 L (11.4-16.0) gm/dL Hct 32.6 L (34.0-46.0) % AST 65 H (14-36) U/L ALT 154 H (4-34) U/L Total Protein 5.7 L (6.3-8.2) g/dL Albumin 3.2 L (3.5-5.0) g/dL Assessment and Plan (1) Abdominal pain Narrative/Plan: 45-year-old female who presented to the hospital with complaints of right upper quadrant pain for 3-4 day duration which improved early Wednesday morning. Gallbladder ultrasound showed cholelithiasis, common bile duct not dilated. However patient had a max bilirubin at 4.9 on admission, which has continued to trend down along with her LFTs. She has been pain-free since she's been admitted to the hospital. She underwent an MRCP showing no evidence of choledochal lithiasis, no biliary dilation. Current Visit: Yes Status: Acute Code(s): R10.9 - UNSPECIFIED ABDOMINAL PAIN SNOMED Code(s): 71987096 (2) Cholelithiasis Current Visit: Yes Status: Acute Code(s): K80.20 - CALCULUS OF GALLBLADDER W/O CHOLECYSTITIS W/O OBSTRUCTION SNOMED Code(s): 831433820 Plan: 1. Keep nothing by mouth 2. Continue supportive care 3. MRCP ordered and reviewed no evidence of choledochalithiasis or biliary duct dilation 4. Repeat CMP in the morning 5. We'll defer further management to surgical services thank you for this consultation, we will continue to follow Dr. Sophia Carpenter I agree with the dictator's note, documented as a scribe by Yeni Barrera.
[2021-04-01] MEDS: PANTOPRAZOLE 40 MG/10 ML VIAL IVP SCH (09:28)
--- NOTE | 2021-04-01 15:37 | P.PN ---
Subjective Progress Note Date: 04/01/21 This is a pleasant 45-year-old female admitted with symptomatic cholelithiasis, elevated LFTs, significant hyperbilirubinemia. T bili 4.9 on admission, dropped to 2 today, suspect possibly passed a stone. Reports similar episode in the fall. Tender right upper quadrant. Maintained on IV fluid hydration, no nausea or vomiting. Evaluated by GI with MRCP recommended. Surgery evaluation pending. T Bili decreased to 2 ,LFTs improving. Afebrile, normal WBC. Denies any chest pain, palpitations or shortness of breath. 04/01/2021 MRCP completed yesterday reporting cholelithiasis, no evident choledocholithiasis. T bili continues trending down, 1.2. NPO, scheduled for OR today. Denies nausea vomiting or abdominal pain. Afebrile, normal WBC. Hepatitis serology nonreactive. Objective - Vital Signs Vital signs: Vital Signs Temp 98.0 F 04/01/21 08:30 Pulse 70 04/01/21 08:30 Resp 16 04/01/21 08:30 BP 112/73 04/01/21 08:30 Pulse Ox 100 04/01/21 08:30 Intake & Output 03/31/21 04/01/21 04/01/21 18:59 06:59 18:59 Intake Total 780 Output Total 800 2700 Balance -800 -1920 Intake: Oral 780 Output: Urine 800 2700 Other: Voiding Method Toilet Toilet - Exam PHYSICAL EXAMINATION: GENERAL: alert and oriented x3, no acute distress. HEENT: Pupils are round and equally reacting to light. EOMI. No scleral icterus. No conjunctival pallor. Normocephalic, atraumatic. CARDIOVASCULAR: S1 and S2 present. No murmurs, rubs, or gallops. PULMONARY: Chest is clear to auscultation, no wheezing or crackles. ABDOMEN: Soft, nondistended, right upper quadrant TTP, no guarding, normoactive bowel sounds. No palpable organomegaly. EXTREMITIES: No cyanosis, clubbing, or pedal edema. NEUROLOGICAL: Gross neurological examination did not reveal any focal deficits. SKIN: Warm and dry, No rashes. - Labs CBC & Chem 7: 04/01/21 06:11 04/01/21 06:11 Labs: Abnormal Lab Results - Last 24 Hours (Table) 04/01/21 04/01/21 Range/Units 06:11 06:11 RBC 3.62 L (3.80-5.40) m/uL Hgb 11.3 L (11.4-16.0) gm/dL Hct 32.6 L (34.0-46.0) % AST 65 H (14-36) U/L ALT 154 H (4-34) U/L Total Protein 5.7 L (6.3-8.2) g/dL Albumin 3.2 L (3.5-5.0) g/dL Assessment and Plan Assessment: Symptomatic cholelithiasis, ultrasound reported gallstones. CT reported no calcified stones, no ductal dilation of the gallbladder.MRCP reported no choledochalithiasis Elevated T bili, LFTs. CT reported 9 mm hemangioma in the left hepatic lobe, 2 cm inferior left hepatic lobe, hypervascular lesion unchanged from prior study Hyperbilirubinemia Plan: Continue on current medication regime ,monitoring and symptomatic treatment. OR pending, Close monitoring of CMP with repeat labs ordered for am.Aggressive pulmonary toilet and with incentive spirometer re-enforced. The impression and plan of care has been dictated as directed. : I performed a history and examination of this patient, discussed the same with the dictator. I agree with the dictator's note ,documented as a scribe. Any additional findings or plans will be noted.
[2021-04-01] MEDS ORDERED: IV FLUID CONTINUATION 1,000 ML IV ONE (15:49)
[2021-04-01] MEDS ORDERED: HEPARIN SODIUM,PORCINE/PF 5,000 UNIT/0.5 ML SYRINGE SQ ONE (16:05)
[2021-04-01] MEDS ORDERED: ONDANSETRON 4 MG/2 ML VIAL IVP ONE (16:09)
[2021-04-01] MEDS ORDERED: DEXAMETHASONE SOD PHOSPHATE 4 MG/ML 1 ML VIAL IVP ONE (16:10)
[2021-04-01] MEDS ORDERED: BUPIVACAINE (PF) 0.5% 30 ML VIAL SQ ONE ×2 (16:32)
--- NOTE | 2021-04-01 17:01 | P.OP ---
Date of Procedure: 04/01/21 Preoperative Diagnosis: Cholecystitis Cholelithiasis Postoperative Diagnosis: Cholecystitis Cholelithiasis Procedure(s) Performed: Laparoscopic cholecystectomy Anesthesia: JOSEFINA Surgeon: Kg Chery Pathology: other (Gallbladder and contents) Condition: stable Disposition: floor Indications for Procedure: 45-year-old female presented to the emergency department with complaints of dark urine and abdominal pain. On workup, she was found to have hyperbilirubinemia and symptoms that did correlate with passage of stone through the common bile duct. Patient was also found to have cholelithiasis. Secondary to this, plan was for laparoscopic cholecystectomy. Patient was explained the risks, benefits and alternatives to procedure and did provide consent prior to attending the operating suite. Operative Findings: Edematous gallbladder Description of Procedure: The patient was brought to the operating suite and placed in supine position on the operating table. Sedation was provided by anesthesia and the patient underwent endotracheal intubation. The patient was then prepped and draped in regular sterile fashion. An infraumbilical incision was made and dissection was carried to the fascia. The fascia was incised and a 12 mm trocar was placed. Pneumoperitoneum was achieved. 3 additional 5 mm trochars were placed. One was placed in the subxiphoid location and 2 in the right upper quadrant. The gallbladder was then examined and was noted to be edematous. It was grasped and retracted superiorly and laterally. Dissection was then carried along the peritoneum to skeletonize the cystic duct and cystic artery. 2 clips were plac ed proximally and the cystic duct and one was placed distally and the cystic duct was ligated. Similarly, 2 clips were placed proximally on the cystic artery and one was placed distally and the cystic artery was ligated. Cautery was then used to dissect the gallbladder from the gallbladder fossa on the liver bed. Once completely removed, the gallbladder was placed in an Endo Catch bag and removed from the abdomen. Hemostasis was noted to be maintained with cautery. Irrigation was used in the right upper quadrant with no evidence of further bleeding or bile leak. The infraumbilical incision fascia was closed with interrupted 0 Vicryl suture using a Reynaldo-Rocky device under laparoscopic guidance. Pneumoperitoneum was then released. All skin incisions were closed with 4-0 Vicryl subcuticular suture. Sterile dressing was applied. The patient was awakened in the operating suite and taken to postanesthesia care unit in stable condition.
[2021-04-01] MEDS ORDERED: KETOROLAC 15 MG/ML 1 ML VIAL IVP ONE (17:34)
[2021-04-01] MEDS ORDERED: HYDROmorphone 0.5 MG/0.5 ML SYRINGE IVP ONE ×2 (17:35→17:53)
[2021-04-01] MEDS ORDERED: SODIUM CHLORIDE 0.9% 1,000 ML IV ONE ×2 (18:17→22:41)
[2021-04-01 22:06] LABS: Glucose,Whole Blood 103 mg/dL (75-99)
[2021-04-02] MEDS: PIPERACILLIN-TAZOBACTAM 3.375 GM in SODIUM CHLORIDE 0.9% 100 ML IVPB SCH ×3 (01:39→18:14)
[2021-04-02] MEDS: KETOROLAC 15 MG/ML 1 ML VIAL IVP PRN ×2 (06:54→13:14)
[2021-04-02 07:23] LABS: ALT 106 U/L (4-34); AST 48 U/L (14-36); African American GFR (CKD) >90 (>60 ml/min/1.73 sqM); Albumin 2.9 g/dL (3.5-5.0); Alkaline Phosphatase 86 U/L (38-126); Anion Gap 8 mmol/L; Blood Urea Nitrogen 8 mg/dL (7-17); Calcium 8.2 mg/dL (8.4-10.2); Carbon Dioxide 21 mmol/L (22-30); Chloride 107 mmol/L (98-107); Glucose 81 mg/dL (74-99); Non-African American GFR(CKD) >90 (>60 ml/min/1.73 sqM); Sodium 136 mmol/L (137-145); Total Bilirubin 1.1 mg/dL (0.2-1.3); Total Protein 5.2 g/dL (6.3-8.2)
[2021-04-02 07:26] LABS: HCT 26.9 % (34.0-46.0); MCH 30.3 pg (25.0-35.0); MCHC 33.3 g/dL (31.0-37.0); MCV 91.1 fL (80.0-100.0); Mean Platelet Volume 6.8; Platelet Count 207 k/uL (150-450); RBC 2.96 m/uL (3.80-5.40); RDW 13.5 % (11.5-15.5); WBC 8.6 k/uL (3.8-10.6)
[2021-04-02] MEDS: PANTOPRAZOLE 40 MG/10 ML VIAL IVP SCH (07:59)
--- NOTE | 2021-04-02 11:11 | P.PN ---
Subjective Progress Note Date: 04/02/21 Patient seen and examined at bedside. States having some incisional discomfort. Overnight, did have an episode of hypotension with systolic blood pressure in the 80s. She did respond to fluid bolus. Hemoglobin this morning is 9 from 11. No evidence of tachycardia Objective - Vital Signs Vital signs: Vital Signs Temp 98.2 F 04/02/21 10:51 Pulse 74 04/02/21 10:51 Resp 18 04/02/21 10:51 BP 97/63 04/02/21 10:51 Pulse Ox 97 04/02/21 10:51 Intake & Output 04/01/21 04/02/21 04/02/21 18:59 06:59 18:59 Intake Total 1150 1000 540 Output Total 705 300 Balance 445 700 540 Intake: IV 1150 Intake, IV Titration 1000 Amount Sodium Chloride 0.9% 1, 1000 000 ml @ 999 mls/hr IV . Q1H1M ONE Rx#:[id number] Oral 540 Output: Urine 700 300 Estimated Blood Loss 5 Other: Voiding Method Toilet # Voids 250 1 1 - Constitutional General appearance: Present: cooperative, no acute distress - Gastrointestinal Gastrointestinal Comment(s): Soft, appropriate tenderness, nondistended, no rebound, no guarding, incision sites are clean, dry and intact - Psychiatric Psychiatric: Present: A&O x's 3 - Labs CBC & Chem 7: 04/02/21 06:37 04/02/21 06:37 Labs: Abnormal Lab Results - Last 24 Hours (Table) 04/01/21 04/02/21 04/02/21 Range/Units 22:05 06:37 06:37 RBC 2.96 L (3.80-5.40) m/uL Hgb 9.0 L D (11.4-16.0) gm/dL Hct 26.9 L (34.0-46.0) % Sodium 136 L (137-145) mmol/L Carbon Dioxide 21 L (22-30) mmol/L POC Glucose (mg/dL) 103 H (75-99) mg/dL Calcium 8.2 L (8.4-10.2) mg/dL AST 48 H (14-36) U/L ALT 106 H (4-34) U/L Total Protein 5.2 L (6.3-8.2) g/dL Albumin 2.9 L (3.5-5.0) g/dL Assessment and Plan Plan: Postoperative day #1, laparoscopic cholecystectomy. Overall, patient does appear to be improving and not complaining of any significant pain. She did have episode of hypotension and did respond to fluid bolus. Due to hemoglobin drop, we will recheck hemoglobin prior to any plan for discharge. This was discussed with the patient's admitting service. Patient's diet can be advanced.
--- NOTE | 2021-04-02 11:43 | P.PN ---
Subjective Progress Note Date: 04/02/21 Principal diagnosis: Abdominal pain Should seen and examined lying in bed. She is post op day #1 for laparoscopic cholecystectomy. She is tolerating clear liquid diet, plan is to advance for lunch. States she is passing gas, no bowel movement. Denies any nausea or vomiting. States she has just surgical pain. LFTs continue to trend down. Objective - Vital Signs Vital signs: Vital Signs Temp 98.2 F 04/02/21 10:51 Pulse 74 04/02/21 10:51 Resp 18 04/02/21 10:51 BP 97/63 04/02/21 10:51 Pulse Ox 97 04/02/21 10:51 Intake & Output 04/01/21 04/02/21 04/02/21 18:59 06:59 18:59 Intake Total 1150 1000 540 Output Total 705 300 Balance 445 700 540 Intake: IV 1150 Intake, IV Titration 1000 Amount Sodium Chloride 0.9% 1, 1000 000 ml @ 999 mls/hr IV . Q1H1M ONE Rx#:[id number] Oral 540 Output: Urine 700 300 Estimated Blood Loss 5 Other: Voiding Method Toilet # Voids 250 1 1 - Exam General appearance: The patient is alert, oriented, appears in no acute distress. HET: Head is normocephalic and atraumatic. Conjunctiva pink. Sclera anicteric. Neck: Supple without lymphadenopathy. Abdomen: Soft, surgical incisions clean dry and intact, well approximated, nondistended with bowel sounds. No guarding or rigidity. Extremities: Normal skin color and turgor. No pedal edema Skin: No rashes, no jaundice Neurological: No focal deficits. Alert and oriented 3. - Labs CBC & Chem 7: 04/02/21 06:37 04/02/21 06:37 Labs: Abnormal Lab Results - Last 24 Hours (Table) 04/01/21 04/02/21 04/02/21 Range/Units 22:05 06:37 06:37 RBC 2.96 L (3.80-5.40) m/uL Hgb 9.0 L D (11.4-16.0) gm/dL Hct 26.9 L (34.0-46.0) % Sodium 136 L (137-145) mmol/L Carbon Dioxide 21 L (22-30) mmol/L POC Glucose (mg/dL) 103 H (75-99) mg/dL Calcium 8.2 L (8.4-10.2) mg/dL AST 48 H (14-36) U/L ALT 106 H (4-34) U/L Total Protein 5.2 L (6.3-8.2) g/dL Albumin 2.9 L (3.5-5.0) g/dL Assessment and Plan (1) Abdominal pain Narrative/Plan: 45-year-old female who presented to the hospital with complaints of right upper quadrant pain for 3-4 day duration which improved early Wednesday morning. Gallbladder ultrasound showed cholelithiasis, common bile duct not dilated. However patient had a max bilirubin at 4.9 on admission, which has continued to trend down along with her LFTs. She has been pain-free since she's been admitted to the hospital. She underwent an MRCP showing no evidence of choledochal lithiasis, no biliary dilation. Current Visit: Yes Status: Acute Code(s): R10.9 - UNSPECIFIED ABDOMINAL PAIN SNOMED Code(s): 13861287 (2) Cholelithiasis Narrative/Plan: Patient is status post laparoscopic cholecystectomy Current Visit: Yes Status: Acute Code(s): K80.20 - CALCULUS OF GALLBLADDER W/O CHOLECYSTITIS W/O OBSTRUCTION SNOMED Code(s): 061152274 Plan: 1. Diet per recommendations from surgical services 2. Continue supportive care 3. MRCP ordered and reviewed no evidence of choledochalithiasis or biliary duct dilation 4. Repeat CMP reviewed, LFTs continue to trend down 5. We'll defer further management to surgical services Thank you for this consultation, we will sign off at this time Dr. Sophia Carpenter I agree with the dictator's note, documented as a scribe by Yeni Barrera.
[2021-04-02 12:46] LABS: HCT 24.9 % (34.0-46.0); HGB 8.6 gm/dL (11.4-16.0); MCH 31.4 pg (25.0-35.0); MCHC 34.7 g/dL (31.0-37.0); MCV 90.5 fL (80.0-100.0); Mean Platelet Volume 7.4; Platelet Count 214 k/uL (150-450); RBC 2.75 m/uL (3.80-5.40); WBC 9.4 k/uL (3.8-10.6)
--- NOTE | 2021-04-02 15:01 | P.DS ---
Providers Date of admission: 04/01/21 09:04 Expected date of discharge: 04/02/21 Attending physician: James Shirley MD Consults: 03/30/21 09:45 Consult Physician Urgent Consulting Provider: Sandra Carpenter Consult Reason/Comments: Hepatitis, cholelithiasis Do you want consulting provider notified?: Yes 03/31/21 08:30 Consult Physician Routine Consulting Provider: Kg Chery Consult Reason/Comments: cholithiasis Do you want consulting provider notified?: Yes Primary care physician: Paige Almazan Hospital Course: Discharge placed on hold, repeat hemoglobin returned at 8.6, platelets 214. Systolic blood pressure in the 90s. Maintain patient overnight for observation with recheck of hemoglobin in a.m. as per surgery. - Exam PHYSICAL EXAMINATION: GENERAL: alert and oriented x3, no acute distress. HEENT: Pupils are round and equally reacting to light. EOMI. No scleral icterus. No conjunctival pallor. Normocephalic, atraumatic. CARDIOVASCULAR: S1 and S2 present. No murmurs, rubs, or gallops. PULMONARY: Chest is clear to auscultation, no wheezing or crackles. ABDOMEN: Soft, nondistended, status post surgery, laparoscopic sites clean dry and intact, no guarding, normoactive bowel sounds. EXTREMITIES: No cyanosis, clubbing, or pedal edema. NEUROLOGICAL: Gross neurological examination did not reveal any focal deficits. SKIN: Warm and dry, No rashes. The impression and plan of care has been dictated as directed. : I performed a history and examination of this patient, discussed the same with the dictator. I agree with the dictator's note ,documented as a scribe. Any additional findings or plans will be noted. Final Diagnoses: Cholelithiasis ,cholecystitis CT reported no calcified stones, no ductal dilation of the gallbladder.MRCP reported no choledochalithiasis. Status post laparoscopic cholecystectomy Elevated T bili, LFTs. CT reported 9 mm hemangioma in the left hepatic lobe, 2 cm inferior left hepatic lobe, hypervascular lesion unchanged from prior study Hyperbilirubinemia Postoperative anemia Borderline hypotension, related to fluid shifting. Hospital course:This is a pleasant 45-year-old female admitted with symptomatic cholelithiasis, elevated LFTs, significant hyperbilirubinemia. T bili 4.9 on admission, dropped to 2 today, suspect possibly passed a stone. Reports similar episode in the fall. Tender right upper quadrant. Maintained on IV fluid hydration, no nausea or vomiting. Evaluated by GI with MRCP recommended. Surgery evaluation pending. T Bili decreased to 2 ,LFTs improving. Afebrile, normal WBC. Denies any chest pain, palpitations or shortness of breath. 04/01/2021 MRCP completed yesterday reporting cholelithiasis, no evident choledocholithiasis. T bili continues trending down, 1.2. NPO, scheduled for OR today. Denies nausea vomiting or abdominal pain. Afebrile, normal WBC. Hepatitis serology nonreactive. Postop day #1 laparoscopic cholecystectomy, tolerated procedure well. Developed symptomatic borderline hypotension, received 1 L bolus. This morning, borderline hypotension, asymptomatic. Denies chest pain, palpitations or shortness of breath. Denies lightheadedness, dizziness or focal deficits. Passing flatus. Denies nausea vomiting or diarrhea. Hemoglobin decreased to 9. No tachycardia. Patient Condition at Discharge: Stable Plan - Discharge Summary Discharge Rx Participant: No New Discharge Prescriptions: New Ibuprofen [Motrin] 600 mg PO Q8HR PRN #24 tab PRN Reason: Pain HYDROcodone/APAP 5-325MG [[place] 5-325] 1 tab PO Q6HR PRN 3 Days #12 tab PRN Reason: Pain Continue Omeprazole 40 mg PO DAILY Cabergoline 0.5 mg PO SUWE Discharge Medication List Cabergoline 0.5 mg PO SUWE 03/30/21 [History] Omeprazole 40 mg PO DAILY 03/30/21 [History] HYDROcodone/APAP 5-325MG [[place] 5-325] 1 tab PO Q6HR PRN 3 Days #12 tab 04/02/21 [Rx] Ibuprofen [Motrin] 600 mg PO Q8HR PRN #24 tab 04/02/21 [Rx] Follow up Appointment(s)/Referral(s): Paige Almazan DO [Primary Care Provider] - 1 Week Kg Chery DO [Doctor of Osteopathic Medicine] - 2 Weeks Activity/Diet/Wound Care/Special Instructions: Pending repeated CBC, BP and tolerating ambulation. Incentive spirometer every one hour 10, [place]
[2021-04-03] MEDS: PIPERACILLIN-TAZOBACTAM 3.375 GM in SODIUM CHLORIDE 0.9% 100 ML IVPB SCH ×2 (02:08→09:41)
[2021-04-03 04:22] VITALS: RESP 16
[2021-04-03 05:48] LABS: Basophils % (A) 1 %; Eosinophils # (A) 0.1 k/uL (0-0.7); Eosinophils % (A) 1 %; HCT 22.5 % (34.0-46.0); HGB 7.6 gm/dL (11.4-16.0); Lymphocytes # (A) 2.4 k/uL (1.0-4.8); Lymphocytes % (A) 39 %; MCV 91.1 fL (80.0-100.0); Mean Platelet Volume 7.8; Monocytes # (A) 0.4 k/uL (0-1.0); Monocytes % (A) 7 %; Neutrophils # (A) 3.2 k/uL (1.3-7.7); Neutrophils % (A) 52 %; Platelet Count 184 k/uL (150-450); RBC 2.47 m/uL (3.80-5.40); RDW 13.3 % (11.5-15.5); WBC 6.2 k/uL (3.8-10.6)
[2021-04-03 05:59] LABS: African American GFR (CKD) >90 (>60 ml/min/1.73 sqM); Anion Gap 4 mmol/L; Blood Urea Nitrogen 8 mg/dL (7-17); Calcium 8.4 mg/dL (8.4-10.2); Carbon Dioxide 25 mmol/L (22-30); Chloride 111 mmol/L (98-107); Glucose 90 mg/dL (74-99); Non-African American GFR(CKD) >90 (>60 ml/min/1.73 sqM); Sodium 140 mmol/L (137-145)
[2021-04-03] MEDS ORDERED: SODIUM CHLORIDE 0.9% 500 ML 500 ML IV SCH (07:30)
[2021-04-03 09:29] VITALS: BP 97/63
[2021-04-03] MEDS: PANTOPRAZOLE 40 MG/10 ML VIAL IVP SCH (09:41)
--- NOTE | 2021-04-03 11:19 | P.PN ---
Subjective Progress Note Date: 04/03/21 This is a pleasant 45-year-old female admitted with symptomatic cholelithiasis, elevated LFTs, significant hyperbilirubinemia. T bili 4.9 on admission, dropped to 2 today, suspect possibly passed a stone. Reports similar episode in the fall. Tender right upper quadrant. Maintained on IV fluid hydration, no nausea or vomiting. Evaluated by GI with MRCP recommended. Surgery evaluation pending. T Bili decreased to 2 ,LFTs improving. Afebrile, normal WBC. Denies any chest pain, palpitations or shortness of breath. 04/01/2021 MRCP completed yesterday reporting cholelithiasis, no evident choledocholithiasis. T bili continues trending down, 1.2. NPO, scheduled for OR today. Denies nausea vomiting or abdominal pain. Afebrile, normal WBC. Hepatitis serology nonreactive. 04/02/21 Discharge placed on hold, repeat hemoglobin returned at 8.6, platelets 214. Systolic blood pressure in the 90s. Maintain patient overnight for observation with recheck of hemoglobin in a.m. as per surgery. 04/03/2021 hemoglobin 7.6, platelets 184. Laparoscopic sites clean dry and intact, no signs of bleeding, no tachycardia. Systolic blood pressures in the high 90s. Passing flatus. Consumed 50% of breakfast, denies nausea or vomiting. Denies abdominal pain. Renal function stable. Ambulating tolerating exertion well. Denies chest pain, palpitations or shortness of breath. Denies lightheadedness, dizziness or focal deficits. Objective - Vital Signs Vital signs: Vital Signs Temp 97.8 F 04/03/21 08:40 Pulse 75 04/03/21 08:40 Resp 16 04/03/21 08:40 BP 97/63 04/03/21 08:40 Pulse Ox 98 04/03/21 08:40 Intake & Output 04/02/21 04/03/21 04/03/21 18:59 06:59 18:59 Intake Total 1640 100 540 Output Total 650 Balance 990 100 540 Intake: Intake, IV Titration 100 100 Amount Piperacillin-Tazobactam 3 100 100 .375 gm In Sodium Chloride 0.9% 100 ml @ 25 mls/hr IVPB Q8H EMMANUEL Rx#: [id number] Oral 1540 540 Output: Urine 650 Other: Voiding Method Toilet # Voids 3 1 - Exam PHYSICAL EXAMINATION: GENERAL: alert and oriented x3, sitting up in bed, no acute distress. HEENT: Pupils are round and equally reacting to light. EOMI. No scleral icterus. No conjunctival pallor. Normocephalic, atraumatic. CARDIOVASCULAR: S1 and S2 present. No murmurs, rubs, or gallops. PULMONARY: Chest is clear to auscultation. ABDOMEN: Soft, nondistended, status post surgery, no guarding, normoactive bowel sounds. EXTREMITIES: No cyanosis, clubbing, or pedal edema. NEUROLOGICAL: Cranial nerves II through XII grossly intact, no focal deficits. SKIN: Warm and dry, No rashes. - Labs CBC & Chem 7: 04/03/21 05:21 04/03/21 05:21 Labs: Abnormal Lab Results - Last 24 Hours (Table) 04/02/21 04/03/21 04/03/21 Range/Units 12:03 05:21 05:21 RBC 2.75 L 2.47 L (3.80-5.40) m/uL Hgb 8.6 L 7.6 L (11.4-16.0) gm/dL Hct 24.9 L 22.5 L (34.0-46.0) % Chloride 111 H (98-107) mmol/L Assessment and Plan Assessment: Symptomatic cholelithiasis, ultrasound reported gallstones. CT reported no calcified stones, no ductal dilation of the gallbladder.MRCP reported no choledochalithiasis Elevated T bili, LFTs. CT reported 9 mm hemangioma in the left hepatic lobe, 2 cm inferior left hepatic lobe, hypervascular lesion unchanged from prior study Hyperbilirubinemia Plan: Continue on current medication regime ,monitoring and symptomatic treatm ent. Recheck CBC at noon. Transfuse if hemoglobin less than 7. If hemoglobin remains stable, DC home today pending clearance from surgery. Increase ambulation as tolerated.Aggressive pulmonary toilet and with incentive spirometer re-enforced. The impression and plan of care has been dictated as directed. : I performed a history and examination of this patient, discussed the same with the dictator. I agree with the dictator's note ,documented as a scribe. Any additional findings or plans will be noted.
[2021-04-03 12:08] LABS: HCT 23.5 % (34.0-46.0); MCH 31.2 pg (25.0-35.0); MCHC 34.2 g/dL (31.0-37.0); MCV 91.3 fL (80.0-100.0); Mean Platelet Volume 8.2; Platelet Count 174 k/uL (150-450); RBC 2.57 m/uL (3.80-5.40); RDW 13.1 % (11.5-15.5); WBC 6.4 k/uL (3.8-10.6)
[2021-04-03 12:25] VITALS: PULSE 74; TEMP 98
--- NOTE | 2021-04-03 13:14 | P.PN ---
Subjective Progress Note Date: 04/03/21 Patient seen and examined at bedside. Over the past 24 hours, hypotension has improved with systolic in the high 90s. Hemoglobin has been followed and is currently stabilized 8. Patient denies any dizziness or lightheadedness. Patient states she is feeling comfortable. Denies any significant abdominal pain. No significant ecchymosis at incision sites. Objective - Vital Signs Vital signs: Vital Signs Temp 98.0 F 04/03/21 12:20 Pulse 74 04/03/21 12:20 Resp 16 04/03/21 12:20 BP 97/63 04/03/21 12:20 Pulse Ox 99 04/03/21 12:20 Intake & Output 04/02/21 04/03/21 04/03/21 18:59 06:59 18:59 Intake Total 1640 100 540 Output Total 650 Balance 990 100 540 Intake: Intake, IV Titration 100 100 Amount Piperacillin-Tazobactam 3 100 100 .375 gm In Sodium Chloride 0.9% 100 ml @ 25 mls/hr IVPB Q8H EMMANUEL Rx#: [id number] Oral 1540 540 Output: Urine 650 Other: Voiding Method Toilet # Voids 3 1 - Constitutional General appearance: Present: cooperative - Gastrointestinal Gastrointestinal Comment(s): Soft, nontender, nondistended, incision sites are clean, dry and intact - Labs CBC & Chem 7: 04/03/21 11:50 04/03/21 05:21 Labs: Abnormal Lab Results - Last 24 Hours (Table) 04/03/21 04/03/21 04/03/21 Range/Units 05:21 05:21 11:50 RBC 2.47 L 2.57 L (3.80-5.40) m/uL Hgb 7.6 L 8.0 L (11.4-16.0) gm/dL Hct 22.5 L 23.5 L (34.0-46.0) % Chloride 111 H (98-107) mmol/L Assessment and Plan Plan: Postoperative day #2, laparoscopic cholecystectomy. Patient's hemoglobin appears to have stabilized. Denies any lightheadedness or dizziness. No evidence of ecchymosis or acute bleed. Patient's abdominal exam is benign at this point. She is surgically stable for discharge. Do recommend following up with primary in the next day or 2. Wound care instructions and diet instructions were provided to the patient.
[2021-04-03] MEDS ORDERED: PROPOFOL 10 MG/ML 20 ML VIAL IV ONE (16:07)
[2021-04-03] MEDS ORDERED: ROCURONIUM 10 MG/ML (5 ML VIAL) IV ONE (16:07)
[2021-04-03] MEDS ORDERED: LIDOCAINE 1% INJ 10MG/ML (20 ML MDV) ONE (16:07)
[2021-04-03] MEDS ORDERED: GLYCOPYRROLATE 0.2 MG/ML 2 ML VIAL ONE (16:07)
[2021-04-03] MEDS ORDERED: NEOSTIGMINE 1 MG/ML 10 ML VIAL ONE (16:07)
[2021-04-03] MEDS ORDERED: fentaNYL (PF) 50 MCG/ML 2 ML AMP ONE (16:07)
[2021-04-03] MEDS ORDERED: MIDAZOLAM 2 MG/2 ML VIAL ONE (16:07)
--- NOTE | 2021-04-04 13:30 | CDI ---
Documentation Clarification Form Date: 04/04/2021 12:26:01 PM From: Anita Amaya RN, CCDS Admit Date: 04/01/2021 09:04:00 AM Patient Name: Mere Stringer Visit Number: [id number] Discharge Date: 04/03/2021 01:36:00 PM ATTENTION: The Clinical Documentation Specialists (CDI) and [facility] Coding Staff appreciate your assistance in clarifying documentation. Please respond to the clarification below the line at the bottom and electronically sign. The CDI & [facility] Coding staff will review the response and follow-up if needed. Please note: Queries are made part of the Legal Health Record. If you have any questions, please contact the author of this message via ITS. Dr. James Shirley Your patient has a hemoglobin/hematocrit level of 8.6/24.9 on 04/02/21.with a diagnosis of post-operative anemia. Please clarify if there is an additional diagnosis and/or clinical significance related to these lab values and the procedure. 04/01/21 Patients admitting Diagnosis: Cholecystitis 04/01/21 Post-Operative Diagnosis: same 04/01/21 Procedure performed: Laparoscopic cholecystectomy History/Risk Factors: Gerd, Gallstones Clinical Indicators: 45-year-old female present to ED on 03/30 with complaints of right upper quadrant abdominal pain after fatty food. Admit on 04/01 has a laparoscopic cholecystectomy. 04/02 Discharge placed on hold, repeat hemoglobin returned at 8.6, platelets 214. Systolic blood pressure in the 90s. 04/01 Vital sign: (08:48) 112/73 70 16 98 100 % RA 03/30 HGB 13.0 HCT 37.6 04/01 HGB 11.3, HCT 32.6 (07:59) 04/02 HGB 9.0, HCT 26.9 (07:59) HGB 8.6 HCT 24.9 (15:59) 04/02 Surgery progress note: Due to hemoglobin drop, we will recheck hemoglobin prior to any plan for discharge. Treatment: Monitor CBC per orders .09NS 1,000 MLS Bolus (04/01) Is there an additional diagnosis and/or clinical significance related to the above lab result/information? [ ] Acute blood loss anemia post-op Expected [ ] Acute on chronic blood loss anemia not related to the surgical procedure [ ] Unable to determine [ ] Other, please specify (Template Last Revised: October 2020) Acute blood loss anemia post-op Expected MTDD
--- NOTE | 2021-04-04 13:56 | CDI ---
Documentation Clarification Form Date: 04/04/2021 01:31:45 PM From: Anita Amaya RN, CCDS Admit Date: 04/01/2021 09:04:00 AM Patient Name: Mere Stringer Visit Number: [id number] Discharge Date: 04/03/2021 01:36:00 PM ATTENTION: The Clinical Documentation Specialists (CDI) and [facility] Coding Staff appreciate your assistance in clarifying documentation. Please respond to the clarification below the line at the bottom and electronically sign. The CDI & [facility] Coding staff will review the response and follow-up if needed. Please note: Queries are made part of the Legal Health Record. If you have any questions, please contact the author of this message via ITS. Dr. James Shirley Borderline hypotension, related to fluid shifting is documented in your discharge summary on and patient had laparoscopic cholecystectomy on 04/01/21. Additional clarification is requested regarding the relationship, if any, that exists between the diagnosis and the procedure. 04/01/21 Patients admitting Diagnosis: Cholecystitis 04/01/21 Post-Operative Diagnosis: same 04/01/21 Procedure performed: Laparoscopic cholecystectomy History/Risk Factors: Gerd, Gallstones Clinical Indicators: 45-year-old female present to ED on 03/30 with complaints of right upper quadrant abdominal pain after fatty food. Admit on 04/01 has a laparoscopic cholecystectomy. 04/01/21 Vital sign: (08:48) 112/73 70 16 98 100 % RA 04/01/21 (22:15) 87/53 75 (00:05 87/48 80 18 97.9 04/02 Discharge placed on hold, repeat hemoglobin returned at 8.6, platelets 214. Systolic blood pressure in the 90s. 04/02 Surgery progress note: Overnight, did have an episode of hypotension with systolic blood pressure in the 80s. She did respond to fluid bolus. Treatment: Monitor BP per orders Monitor CBC per orders .09NS 1,000 MLS Bolus (04/01) What relationship, if any, exists between the diagnosis of hypotension, related to fluid shifting and the procedure? [ ] Hypotension, related to fluid shifting is a complication of surgical procedure [ ] Hypotension, related to fluid shifting is an expected outcome of the surgical procedure [ ] Hypotension, related to fluid shifting is related to patients co-morbid condition(s) of [insert co-morbid dxs] & not a complication of the procedure [ ] Other please specify ____ [ ] Unable to determine (Template Last Revised: November 2020) Hypotension, related to fluid shifting is an expected outcome of the surgical procedure MTDD
== END 2021-04-03 13:36 | disposition home or self-care (01) | DRG 418 ==
LOC: EC 05:21 → 6PED 09:54 → OBSVTOIN 04-01 09:04
PROVIDERS: ADMIT Family Medicine; ATTEND Family Medicine
PROC: 0FT44ZZ Resection of Gallbladder, Percutaneous Endoscopic Approach (ICD-10-PCS; principal; 2021-04-01 16:00)
DX: K80.10 Calculus of gallbladder with chronic cholecystitis without obstruction (principal); D62 Acute posthemorrhagic anemia; K75.9 Inflammatory liver disease, unspecified; I95.9 Hypotension, unspecified; K21.9 Gastro-esophageal reflux disease without esophagitis; Z79.899 Other long term (current) drug therapy; Z86.018 Personal history of other benign neoplasm
CPT/HCPCS: 36415; 74177; 74181; 76705; 80048; 80053; 80074; 80143; 81003; 81025; 82150; 82248; 82977; 83605; 83690; 84702; 85025; 85027; 85610; 85730; 88304; 96360; 96361; 99285

== ENCOUNTER → 2021-07-04 | Outpatient (CLI) | payer BC ==
--- NOTE | 2021-07-07 10:43 | MM ---
Reason for exam: screening (asymptomatic). Last mammogram was performed 3 years ago. History: Patient is nulliparous. Took hormonal contraceptives for 25 years beginning at age 18. Physical Findings: A clinical breast exam by your physician is recommended on an annual basis and results should be correlated with mammographic findings. MG 3D Screening Mammo W/Cad Bilateral CC, MLO, and XCCL view(s) were taken. Prior study comparison: June 20, 2018, mammogram, performed at [facility]. August 11, 2016, mammogram, performed at [facility]. The breast tissue is extremely dense which could obscure a lesion on mammography. Stable benign calcifications. There is no discrete abnormality. No significant changes when compared with prior studies. ASSESSMENT: Benign, BI-RAD 2 RECOMMENDATION: Routine screening mammogram of both breasts in 1 year.
== END | disposition home or self-care (01) ==
LOC: RADMAMWWP 07:14
PROVIDERS: ATTEND Obstetrics & Gynecology Obstetrics
DX: Z12.31 Encounter for screening mammogram for malignant neoplasm of breast (principal)
CPT/HCPCS: 77063; 77067

== ENCOUNTER → 2021-07-22 | Outpatient (CLI) | payer BC | END | disposition home or self-care (01) | LOC: LABPAT 13:17 | PROVIDERS: ATTEND Obstetrics & Gynecology Obstetrics | DX: Z53.9 Procedure and treatment not carried out, unspecified reason (principal) ==

== ENCOUNTER 2021-07-29 09:27 | Day surgery (SDC) | payer BC ==
[2021-07-22 14:50] LABS: Basophils # (A) 0.1 k/uL (0-0.2); Basophils % (A) 1 %; Eosinophils # (A) 0.1 k/uL (0-0.7); Eosinophils % (A) 2 %; HCT 38.4 % (34.0-46.0); HGB 12.6 gm/dL (11.4-16.0); Lymphocytes # (A) 2.7 k/uL (1.0-4.8); Lymphocytes % (A) 44 %; MCHC 32.8 g/dL (31.0-37.0); MCV 91.3 fL (80.0-100.0); Mean Platelet Volume 7.2; Monocytes # (A) 0.4 k/uL (0-1.0); Monocytes % (A) 7 %; Neutrophils # (A) 2.6 k/uL (1.3-7.7); Neutrophils % (A) 43 %; Platelet Count 246 k/uL (150-450); RBC 4.21 m/uL (3.80-5.40); RDW 12.5 % (11.5-15.5)
--- NOTE | 2021-07-29 09:07 | P.HPOB ---
History of Present Illness H&P Date: 07/29/21 Chief Complaint: Heavy menstrual bleeding, family status complete. This is a 46-year-old non G0 patient that presented to the office with complaints of regular menstrual cycles. Patient notes heavy irregular menstrual bleeding. She denies dysmenorrhea. Ultrasound was completed revealing a normal uterine size of 7 cm, thickened endometrial lining at 1.4 cm with an endometrial polyp appreciated. Ovaries were appreciated to be normal. Review of Systems Constitutional: Denies chills, Denies fatigue, Denies fever Ears, nose, mouth and throat: Denies headache Cardiovascular: Denies leg edema Respiratory: Denies dyspnea Gastrointestinal: Denies nausea, Denies vomiting Genitourinary: Denies Past Medical History Past Medical History: No Reported History Additional Past Medical History / Comment(s): BENIGN PITUITARY GLAND TUMOR History of Any Multi-Drug Resistant Organisms: None Reported Past Surgical History: Cholecystectomy Past Anesthesia/Blood Transfusion Reactions: No Reported Reaction Additional Past Anesthesia/Blood Transfusion Reaction / Comment(s): HAD SYNCOPAL EPISODE POST-OP WHEN AT HOME (MIGHT HAVE BEEN HYPOSTENSION) Past Psychological History: No Psychological Hx Reported Smoking Status: Never smoker Past Alcohol Use History: Occasional Past Drug Use History: None Reported - Past Family History Mother Family Medical History: No Reported History Medications and Allergies Home Medications Medication Instructions Recorded Confirmed Type Cabergoline 0.5 mg PO SUWE 03/30/21 07/28/21 History Omeprazole 40 mg PO DAILY 03/30/21 07/28/21 History Allergies Allergy/AdvReac Type Severity Reaction Status Date / Time No Known Allergies Allergy Verified 07/28/21 09:47 Exam Osteopathic Statement: *. No significant issues noted on an osteopathic structural exam other than those noted in the History and Physical/Consult. 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 On genitourinary exam external genitalia is noted to be normal for age on discharge or lesions are appreciated. The vaginal vault is noted to be pink and well rugated, the uterus is noted to be mobile and nontender, cervix is without lesion. No adnexal masses are appreciated. Results Result Diagrams: 07/22/21 13:53 Assessment and Plan (1) Menorrhagia with irregular cycle Status: Acute Code(s): N92.1 - EXCESSIVE AND FREQUENT MENSTRUATION WITH IRREGULAR CYCLE SNOMED Code(s): 377145892 (2) Family planning Status: Acute Code(s): Z30.09 - ENCOUNTER FOR [facility] AND ADVICE ON CONTRACEPTION SNOMED Code(s): 677333871 Plan: Options for treatment were discussed with the patient including OCP, IUD, patient desires tubal ligation as she is in a new relationship and does not desire to conceive. Discussion regarding laparoscopic tubal ligation with Filshie clips, hysteroscopy D&C with ablation is reviewed. All questions are answered. Risks are reviewed including failure of the procedure, tubal ligation or endometrial ablation. Patient states understanding and wishes to proceed.
[~2021-07-29 09:27] MED LIST: DEXAMETHASONE SOD PHOSPHATE 4 MG/ML 1 ML VIAL IV ONE; HYDROmorphone 0.5 MG/0.5 ML SYRINGE IVP PRN; LACTATED RINGERS 1,000 ML IV SCH; MIDAZOLAM 2 MG/2 ML VIAL IV PRN; ONDANSETRON 4 MG/2 ML VIAL IVP ONE; Pre Op ABX Message 1 EACH MISC MISCELLANE ONE; SCOPOLAMINE 1.5MG/72HR PATCH TRANSDERM ONE
[2021-07-29] MEDS ORDERED: KETOROLAC 15 MG/ML 1 ML VIAL ONE (10:43)
[2021-07-29] MEDS ORDERED: ROCURONIUM 10 MG/ML (5 ML VIAL) IV ONE (10:43)
[2021-07-29] MEDS ORDERED: NEOSTIGMINE 1 MG/ML 10 ML VIAL ONE (10:43)
[2021-07-29] MEDS ORDERED: LIDOCAINE 1% INJ 10MG/ML (20 ML MDV) ONE (10:43)
[2021-07-29] MEDS ORDERED: GLYCOPYRROLATE 0.2 MG/ML 2 ML VIAL ONE (10:43)
[2021-07-29] MEDS ORDERED: PROPOFOL 10 MG/ML 20 ML VIAL IV ONE (10:43)
[2021-07-29] MEDS ORDERED: fentaNYL (PF) 50 MCG/ML 2 ML AMP ONE (10:43)
[2021-07-29] MEDS ORDERED: SUCCINYLCHOLINE CHLORIDE 100 MG/5 ML SYR IV ONE (10:43)
[2021-07-29] MEDS ORDERED: MIDAZOLAM 2 MG/2 ML VIAL ONE (10:43)
[2021-07-29] MEDS ORDERED: BUPIVACAINE (PF) 0.25% 30 ML VIAL SQ ONE (11:13)
[2021-07-29] MEDS ORDERED: LIDOCAINE URO-JET JELLY 2% 5 ML KIT URETHRAL ONE (11:14)
--- NOTE | 2021-07-29 11:47 | P.OP ---
Date of Procedure: 07/29/21 Preoperative Diagnosis: Heavy irregular menstrual bleeding, family status complete, endometrial polyp Postoperative Diagnosis: Same Procedure(s) Performed: Laparoscopic tubal ligation with Filshie clips, hysteroscopy, dilation and curettage, endometrial ablation, NovaSure Anesthesia: JOSEFINA Surgeon: Adrienne Meneses Estimated Blood Loss (ml): 15 IV fluids (ml): 600 Urine output (ml): 100 Pathology: other (Endometrial curettings) Condition: stable Disposition: PACU Indications for Procedure: Heavy irregular menstrual cycles, desires permanent sterilization, endometrial polyp noted on ultrasound Operative Findings: Proliferative endometrium is appreciated. Normal pelvic anatomy, normal ovaries bilaterally, normal-appearing appendix. Description of Procedure: Patient was taken back to the operating suite where general anesthesia was obtained without difficulty by the anesthesia department. She was prepped and draped in the normal sterile fashion in the dorsal lithotomy position. A red rubber catheter was used to drain the bladder clear yellow urine. A weighted speculum was placed in the posterior vaginal vault intralipids the cervix is visualized and grasped with a single-tooth tenaculum. The endocervical canal was dilated an acorn uterine manipulator was advanced into the cervix as a means to miniplate the uterus throughout the tubal ligation. Attention was returned to the patient's abdomen where in the umbilical fold a small skin incision is made. The Veress needles placed through this incision and toward the abdominal cavity. Once the Veress needle was deemed to be in the appropriate position with a drop of CO2 pressure with the insufflation of CO2 gas CO2 insufflation was allowed to occur. 3 L of CO2 gas was used to obtain pneumoperitoneum. At this time a trocar with a floor winder scope in place was placed through the skin incision and toward the pneumoperitoneum. The above-noted findings are visualized. An additional port site is placed in the right lateral abdomen under direct visualization. The Filshie clip applicator was laced into the abdomen and both fallopian tubes were crushed with a click per circulator's instructions. Hemostasis was appreciated pictures were taken. All instruments removed from the patient's abdomen. The skin incisions were closed with 4-0 Vicryl in a subarticular fashion. Steri-Strips and sterile dressings were applied after instillation of lidocaine. Attention turned the patient's vaginal vault where the acorn uterine and bladder was removed from the cervix. The cervix was then serially dilated, a hysteroscope was placed in the cervix toward the endometrial cavity a proliferative endometrium was noted. Sharp curettage was then performed until gritty texture was noted in all 4 quadrants of the endometrial cavity. This specimen was then sent to pathology for analysis. The NovaSure device was then opened and set to the appropriate measurements for the patient's uterine cavity. Total length of 4, width of 2.5, power of 55. The NovaSure cycle was allowed to complete after cavity assessment was passed. The total cycle lasted 2 minutes. Afterwards the NovaSure was removed without difficulty intact. CO2 tenaculum was taken off of the anterior lip the cervix and hemostasis was appreciated. At this time all counts were noted be correct 2. Patient did tolerate procedure well was taken the recovery room awake in stable condition.
[2021-07-29 11:53] VITALS: TEMP 97
[2021-07-29] MEDS ORDERED: LACTATED RINGERS 1,000 ML IV ONE (12:20)
[2021-07-29 12:32] VITALS: RESP 16
[2021-07-29 12:43] VITALS: BP 133/77; PULSE 89
== END 2021-07-29 13:04 | disposition home or self-care (01) ==
LOC: OR 09:27
PROVIDERS: ATTEND Obstetrics & Gynecology Obstetrics
DX: N92.0 Excessive and frequent menstruation with regular cycle (principal); Z30.2 Encounter for sterilization; N93.9 Abnormal uterine and vaginal bleeding, unspecified; K21.9 Gastro-esophageal reflux disease without esophagitis; D35.2 Benign neoplasm of pituitary gland; Z90.49 Acquired absence of other specified parts of digestive tract; Z79.899 Other long term (current) drug therapy
CPT/HCPCS: 81025; 88305; 85025; 58563; 58671; J2250; J1100; J2710; J2001; J3010; J1885; J0330; J2704; J1170

== ENCOUNTER → 2023-09-08 | Outpatient (CLI) | payer BC ==
--- NOTE | 2023-09-11 23:23 | MM ---
Reason for Exam: Screening (asymptomatic). Last mammogram was performed 2 year(s) and 2 month(s) ago. Patient History: Menarche at age 14. Patient has no children. Hormonal Contraceptives for 25 years from age 18 until age 45. Risk Values: Ambar 5 year model risk: 0.9%. NCI Lifetime model risk: 9.3%. Prior Study Comparison: 08/11/2016 Screening Mammogram, [facility]. 06/20/2018 Screening Mammogram, [facility]. 07/04/2021 Bilateral Screening Mammogram, [facility]. Tissue Density: The breast tissue is heterogeneously dense. This may lower the sensitivity of mammography. Findings: Analyzed By CAD. Nodularity located medially in the right breast at a posterior depth appears new. Further evaluation recommended. Otherwise, no significant change. Overall Assessment: Incomplete: need additional imaging evaluation, BI-RAD 0 Management: Special View Mammogram of the right breast. Diagnostic Breast Ultrasound of the right breast. Additional views to include spot 3-D CC, spot 3-D MLO, and 3 lateral views (to include far posterior tissue). Targeted right breast ultrasound for any persisting abnormality [facility] will attempt to contact patient to return for supplemental views and ultrasound if indicated. Electronically signed and approved by: Andrew Domínguez M.D. Radiologist
== END | disposition home or self-care (01) ==
LOC: RADMAMWWP 07:39
PROVIDERS: ATTEND Obstetrics & Gynecology Obstetrics
DX: Z12.31 Encounter for screening mammogram for malignant neoplasm of breast (principal)
CPT/HCPCS: 77063; 77067

== ENCOUNTER → 2023-09-30 | Outpatient (CLI) | payer BC ==
--- NOTE | 2023-09-30 07:30 | MM ---
Reason for Exam: Additional evaluation requested from abnormal screening. Last screening mammogram was performed less than 1 month ago. Patient History: Menarche at age 14. Patient has no children. Hormonal Contraceptives for 25 years from age 18 until age 45. Last menstrual period: 09/29/2023 Risk Values: Ambar 5 year model risk: 0.9%. NCI Lifetime model risk: 9.3%. Prior Study Comparison: 08/11/2016 Screening Mammogram, [facility]. 06/20/2018 Screening Mammogram, [facility]. 07/04/2021 Bilateral Screening Mammogram, [facility]. 09/08/2023 Bilateral MG 3D screening mammo w/cad, [facility]. Tissue Density: Right: The breast tissue is heterogeneously dense. This may lower the sensitivity of mammography. Findings: Analyzed By CAD. There is a persistent oval density with partially obscured margins in 2 to 3:00 position posterior right breast. This is 7 cm nipple and measures approximately 0.7 cm on the current study. Additional evaluation with ultrasound is recommended. Overall Assessment: Incomplete: need additional imaging evaluation, BI-RAD 0 Management: Diagnostic Breast Ultrasound of the right breast. A negative mammogram report should not preclude additional follow up of suspicious palpable abnormalities. Patient should continue monthly self breast exam. A clinical breast exam by your physician is recommended on an annual basis and results should be correlated with mammographic findings. Electronically signed and approved by: Heriberto Mendez D.O. Radiologis
--- NOTE | 2023-09-30 08:14 | USB ---
Reason for Exam: Additional evaluation requested from abnormal screening. Patient History: Menarche at age 14. Patient has no children. Hormonal Contraceptives for 25 years from age 18 until age 45. Risk Values: Ambar 5 year model risk: 0.9%. NCI Lifetime model risk: 9.3%. Technique: Method: Targeted. Prior Study Comparison: 08/11/2016 Screening Mammogram, [facility]. 06/20/2018 Screening Mammogram, [facility]. 07/04/2021 Bilateral Screening Mammogram, [facility]. 09/08/2023 Bilateral MG 3D screening mammo w/cad, [facility]. Findings: The upper inner quadrant of the right breast, the axilla of the right breast and the retroareolar of the right breast were scanned. There is a 0.7 x 0.4 x 0.7 cm hypoechoic rounded area 3:00 position 8 cm from the nipple. This correlates with the mammogram. Finding is considered suspicious. Ultrasound-guided core biopsy is recommended.. Overall Assessment: Suspicious, BI-RAD 4 Management: Ultrasound Core Biopsy of the right breast. A clinical breast exam by your physician is recommended on an annual basis and results should be correlated with mammographic findings. This exam should not preclude additional follow-up of suspicious palpable abnormalities. Results were given to the patient verbally at the time of exam. Electronically signed and approved by: Heriberto Mendez D.O. Radiologis
== END | disposition home or self-care (01) ==
LOC: RADMAMWWP 06:52
PROVIDERS: ATTEND Obstetrics & Gynecology Obstetrics
DX: R92.331 Mammographic heterogeneous density, right breast (principal)
CPT/HCPCS: 77061; 77065

== ENCOUNTER → 2025-03-01 | Outpatient (CLI) | payer BC ==
--- NOTE | 2025-03-01 08:04 | MM ---
Reason for Exam: Screening (asymptomatic). Last mammogram was performed 1 year(s) and 6 month(s) ago. Patient History: Menarche at age 14. Patient has no children. Hormonal Contraceptives for 25 years from age 18 until age 45. Risk Values: Ambar 5 year model risk: 0.9%. NCI Lifetime model risk: 9.2%. Prior Study Comparison: 07/04/2021 Bilateral Screening Mammogram, [facility]. 09/08/2023 Bilateral MG 3D screening mammo w/cad, [facility]. 09/30/2023 Right MG 3D work up w/cad RT, [facility]. Tissue Density: The breasts are extremely dense, which lowers the sensitivity of mammography. Findings: Analyzed By CAD. There is an increasing nodule in the lower margin right breast no suspicious calcifications. No architectural distortion. Overall Assessment: Incomplete: need additional imaging evaluation, BI-RAD 0 Management: Diagnostic Breast Ultrasound of the right breast. . Patient should continue monthly self-breast exams. A clinical breast exam by your physician is recommended on an annual basis. This exam should not preclude additional follow-up of suspicious palpable abnormalities. Note on Ambar scores and lifetime risk: 1. A Ambar score greater than 3% is considered moderate risk. If this is the case, consider specialist referral to assess eligibility for a risk reducing agent. 2. If overall lifetime risk for the development of breast cancer is 20% or higher, the patient may qualify for future screening with alternating mammogram and breast MRI. [facility], , 03/01/2025 8:01 AM. Electronically signed and approved by: Benjy Cardozo M.D. Radiologis
== END | disposition home or self-care (01) ==
LOC: RADMAMWWP 07:02
PROVIDERS: ATTEND Obstetrics & Gynecology Obstetrics
DX: Z12.31 Encounter for screening mammogram for malignant neoplasm of breast (principal); R92.343 Mammographic extreme density, bilateral breasts; Z92.0 Personal history of contraception
CPT/HCPCS: 77063; 77067

== ENCOUNTER → 2025-03-09 | Outpatient (CLI) | payer BC ==
--- NOTE | 2025-03-09 08:33 | USB ---
Reason for Exam: Additional evaluation requested from prior study. Patient History: Menarche at age 14. Patient has no children. Hormonal Contraceptives for 25 years from age 18 until age 45. Risk Values: Ambar 5 year model risk: 0.9%. NCI Lifetime model risk: 9.2%. Technique: Method: Targeted. Prior Study Comparison: 09/08/2023 Bilateral MG 3D screening mammo w/cad, [facility]. 09/30/2023 Right MG 3D work up w/cad RT, [facility]. 03/01/2025 Bilateral MG 3D screening mammo w/cad, [facility]. Findings: The lower section of the breast of the right breast, the axilla of the right breast and the retroareolar of the right breast were scanned. Targeted ultrasound left breast 2:00 to 9:00 position including scanning of the subareolar region and axilla. At the 2:00 position, 8 cm from the nipple, there is an oval, circumscribed hypoechoic solid mass measuring 8 x 6 x 8 mm. Minimally increased in size from 09/30/2023 weren't measured 7 x 4 x 7 mm. Dense tissues are present throughout. No other solid or cystic lesion or axillary adenopathy. Overall Assessment: Suspicious, BI-RAD 4 Management: Ultrasound Core Biopsy of the right breast. Given slight interval increase in size and as the lesion appears to be new on the prior screening exam. Results were given to the patient verbally at the time of exam. [facility], , 03/09/2025 8:30 AM. Electronically signed and approved by: Andrew Domínguez M.D. Radiologist
== END | disposition home or self-care (01) ==
LOC: RADUSWWP 08:04
PROVIDERS: ATTEND Obstetrics & Gynecology Obstetrics
DX: R92.8 Other abnormal and inconclusive findings on diagnostic imaging of breast (principal)

== ENCOUNTER → 2025-03-28 | Day surgery (SDC) | payer BC ==
--- NOTE | 2025-04-02 09:51 | MM ---
Reason for Exam: Post Procedure Mammogram. Last screening mammogram was performed less than 1 month ago. Patient History: Menarche at age 14. Patient has no children. Hormonal Contraceptives for 25 years from age 18 until age 45. Risk Values: Ambar 5 year model risk: 0.9%. NCI Lifetime model risk: 9.2%. Prior Study Comparison: 09/08/2023 Bilateral MG 3D screening mammo w/cad, [facility]. 09/30/2023 Right MG 3D work up w/cad RT, [facility]. 03/01/2025 Bilateral MG 3D screening mammo w/cad, [facility]. Tissue Density: Right: The breasts are extremely dense, which lowers the sensitivity of mammography. Pathology Description: Location: 2 o'clock. Marker Left Behind. Needle Type: Celero Cores: 2 Gauge: 12 The procedure of ultrasound guided core biopsy was explained to the patient. Benefits, alternatives, and risks were discussed. An informed consent was then obtained. The patient was placed in supine positioning for imaging and for the procedure. Preprocedure ultrasound redemonstrates an oval circumscribed 8 mm hypoechoic lesion at 2:00 position in the right breast. The overlying skin was prepped and draped in usual sterile fashion. Lidocaine buffered with bicarbonate was used as anesthetic into the skin and subcutaneous tissue up to area of concern in the right breast. Under ultrasound guidance, a vacuum assisted biopsy gun device was used to obtain 2 core samples. Following this, a biopsy clip was left in lesion. The patient tolerated the procedure well without any immediate complication. The patient was kept in the radiology department for short stay after the procedure and then discharged home in stable condition. Postprocedure mammogram: The patient was transferred to mammography for physician ordered post procedure mammogram for clip placement verification. Post procedure mammogram demonstrates appropriate placement of clip. Impression: Successful, uncomplicated ultrasound guided core biopsy of area of concern in the right breast, full pathology results to follow. Intermediate index of suspicion noted at time of procedure. [facility], , 03/28/2025 1:05 PM. Pathology Results: Result: Benign, Fibroadenoma. Pathology and radiology were reviewed. Findings are concordant. RIGHT BREAST, TWO O'CLOCK, ULTRASOUND GUIDED NEEDLE CORE BIOPSY: Fibroadenoma. Overall Assessment: Benign Assessment: MG diagnostic mammo RT wo CAD - Right: Benign, BI-RAD 2. Management: Diagnostic Mammogram of both breasts in 1 year. 12 month follow up mammogram bilateral. Back on schedule. Electronically signed and approved by: Julian Damian M.D.
== END ==
LOC: RADUSWWP 06:55
PROVIDERS: ATTEND Surgery
DX: D24.1 Benign neoplasm of right breast (principal)
CPT/HCPCS: 88305; 77065; 19083; A4648